=== PATIENT | female | born 1985 | race Caucasian/White ===

== ENCOUNTER 2016-05-01 09:08 | Day surgery (SDC) | payer MEDICAID ==
[2016-04-25 10:47] LABS: HEMATOCRIT 38.6 % (36.0-47.0); HEMOGLOBIN 12.8 g/dL (12.0-15.5); HGB HCT DIFFERENCE -0.2; MEAN CORPUSCULAR HEMOGLOBIN 26.6 pg (27.0-33.4); MEAN CORPUSCULAR HGB CONC 33.1 g/dL (32.0-36.0); MEAN CORPUSCULAR VOLUME 80 fl (80-97); RED BLOOD COUNT 4.82 10^6/uL (3.72-5.28); RED CELL DISTRIBUTION WIDTH 14.4 % (11.5-14.0); WHITE BLOOD COUNT 10.9 10^3/uL (4.0-10.5)
[2016-04-25 11:07] LABS: APPEARANCE,URINE CLOUDY; BILIRUBIN,URINE NEGATIVE (NEGATIVE); GLUCOSE, URINE NEGATIVE (NEGATIVE); KETONES,URINE NEGATIVE (NEGATIVE); LEUKOCYTE ESTERASE,URINE LARGE (NEGATIVE); NITRITE,URINE NEGATIVE (NEGATIVE); PROTEIN,URINE 30 mg/dL (NEGATIVE); URINE SPECIFIC GRAVITY 1.029; UROBILINOGEN,URINE NEGATIVE mg/dL (<2.0)
[2016-04-25 11:17] LABS: ANION GAP 15 (5-19); BLOOD UREA NITROGEN 14 mg/dL (7-20); CALCIUM 9.4 mg/dL (8.4-10.2); CARBON DIOXIDE 23 mmol/L (22-30); CHLORIDE 103 mmol/L (98-107); CREATININE RESULT 0.62 mg/dL (0.52-1.25); GLUCOSE 95 mg/dL (75-110); POTASSIUM 4.5 mmol/L (3.6-5.0); SODIUM 140.9 mmol/L (137-145)
[~2016-05-01 09:08] MED LIST: LIDOCAINE 0.5% INJ-PF (5 MG/ML) 50 ML SDV SUBCUT PRN; RINGERS SOLUTION,LACTATED 1,000 ML IV PRN; VANCOMYCIN HCL 1,000 MG in DEXTROSE 5%-WATER 250 ML IV PRN
[2016-05-01] MEDS ORDERED: DEXAMETHASONE SOD PHOSPHATE INJ 4 MG/1 ML VIAL ONE (11:01)
[2016-05-01] MEDS ORDERED: ONDANSETRON HCL INJ/PF 4 MG/2 ML SDV ONE (11:01)
[2016-05-01] MEDS ORDERED: SUCCINYLCHOLINE CHLORIDE INJ 200 MG/10 ML VIAL ONE (11:01)
[2016-05-01] MEDS ORDERED: HYDROMORPHONE HCL INJ/PF 2 MG/ML AMPULE ONE ×2 (11:20→11:22)
[2016-05-01] MEDS ORDERED: MIDAZOLAM 2 MG/2 ML INJ ONE (11:20)
[2016-05-01] MEDS ORDERED: FENTANYL CITRATE INJ/PF 250 MCG/5 ML AMPULE ONE (11:20)
[2016-05-01] MEDS ORDERED: PROPOFOL INJ 200 MG/20 ML VIAL IV ONE (11:21)
[2016-05-01] MEDS ORDERED: ACETAMINOPHEN 100 ML IV ONE (11:23)
[2016-05-01] MEDS ORDERED: BUPIVACAINE HCL 0.5 % INJ/PF 30 ML SDV ONE (11:26)
[2016-05-01] MEDS ORDERED: BUPIVACAINE HCL 0.5%-EPI 1:200000 INJ/PF 30 ML VIAL ONE (11:26)
[2016-05-01] MEDS ORDERED: PROMETHAZINE HCL INJ 25 MG/1 ML VIAL IV PRN ×2 (12:04)
[2016-05-01] MEDS ORDERED: FENTANYL CITRATE INJ/PF 100 MCG/2 ML AMPUL IV PRN ×3 (12:04)
[2016-05-01] MEDS ORDERED: DIPHENHYDRAMINE HCL 50 MG/ML VIAL IV PRN (12:04)
[2016-05-01] MEDS ORDERED: MEPERIDINE HCL/PF INJ 25 MG/1 ML DISP.SYRIN IV PRN (12:04)
[2016-05-01] MEDS ORDERED: DEXMEDETOMIDINE INJ 80 MCG/20 ML VIAL IV ONE (13:42)
[2016-05-01] MEDS: HYDROMORPHONE HCL INJ/PF 2 MG/ML AMPULE ONE ×8 (14:10→15:30)
--- NOTE | 2016-05-01 14:20 | Operative Report ---
Operative Report DATE OF SURGERY: 05/01/16 PREOPERATIVE DIAGNOSIS: Recurrent left patellar dislocation with osteochondral fragment. POSTOPERATIVE DIAGNOSIS: Same OPERATION: Left knee arthroscopy with medial patellofemoral ligament reconstruction utilizing gracilis allograft SURGEON: SALLY STRATTON ANESTHESIA: GA TISSUE REMOVED OR ALTERED: None COMPLICATIONS: None ESTIMATED BLOOD LOSS: 30 mL PROCEDURE: Patient was brought to the operating room and successfully induced and intubated in a the supine position. Once the endotracheal tube was secured the right lower extremity thigh tourniquet was applied and the left lower extremity was prepped and draped in a normal surgical fashion. Timeout was done identifying the left knee has a correct site. The extremity was held elevated for a couple minutes and then tourniquet was inflated at 300 mmHg 0.5% of Marcaine was injected into the anticipated portal sites. 11 blade was used to establish the anterolateral portal. Scope was introduced and the capsule was distended with sterile saline solution. Under direct visualization the anteromedial portal sites was established first by applying a spinal needle and then established with the 11 blade. Probe was introduced and a diagnostic scope was done. I noted the small osteochondral fragment on the inferior aspect of the patella which I was able to use a tissue grasper to remove. I estimated the size of the osteochondral fragment to be about 1 x 1 cm in size. Remaining patella was intact with some grade 2 and 3 changes of the inferior pole of the patella.. The lateral femoral condyle was intact but had some degenerative changes at the ridge laterally where her recurrent dislocations occurred. Trochlea medial, lateral compartments were all pristine with no meniscal tear or cartilage wear. Anterior cruciate ligament and PCL were intact. At this point I proceeded to remove the fluid from the knee and removed the drapes and proceeded with the medial patellofemoral ligament reconstruction portion of the case. 15 blade was used to do a larger incision just on the medial aspect of the patella. Dissection was taken down to the retinaculum. Bovie was used for hemostasis. 15 blade and Bovie was used to expose the medial border of the patella and make sure that we're superior enough as well. I noted the proximal stitches from her medial reefing. This was removed. At this point I used the 2 guide pins and placed him in the superior two thirds of the patella. C-arm was used to take AP and lateral fluoroscopy to confirm placement. Once I was satisfied with the location I then proceeded to use a 4.5 mm reamer and drilled about 25-30 mm in depth. At this point the gracilis was prepared in the back table and uses a to a FiberWire to do a whipstitch on both ends. Tendon length measured about 220 mm in length total. Once the 2 ends were sutured I fed while he has through the measuring device and make sure that it passed through a 4.5 mm tunnel which it did. At this point I fed while he has and secured it with one a swivel locks and secured it in the most proximal drill hole. I was able to screw the swivel lock into successfully without difficulty. I pulled on it showing good fixation on the patella. I repeated this procedure with the other limb and secured in the patella as mentioned above. I pulled on both limbs and showed no fixation failure and good fixation and tension. At this point then I did a 2 inch incision on the medial aspect of the knee just adjacent to the medial femoral condyle. This was dissected down with Bovie and Metzenbaum scissors until exposing the medial femoral condyle and medial epicondyle. Was able to pin the position of the MPFL and take C-arm pictures to confirm location. Once I was satisfied with the location of then proceeded to use a 7 mm reamer. Sure was passed 30 mm in length. I fed the gracilis looped portion subcutaneously and expose it through the medial incision. This was fed through the Gerson needle and was passed in the lateral aspect of thigh was pulled and secured into the drilled tunnel. I kept the knee in a triangle and bent about 30 or 40 to make sure there was appropriate tension. Once I was happy then I placement nitinol wire and secured the graft into the tunnel with a 7 x 23 bio composite interference screw. Make sure was sunk and holding the graft. Then I pulled the FiberWire on the lateral aspect of the thigh successfully. At this point irrigation was used to clean the extremity and proceeded to close the wound. I reapproximated the vastus medialis onto the medial aspect of the patella and close my repair over the gracilis graft. I used a #1 Vicryl. I then proceeded to close the subcutaneous tissue with 0 Vicryl and 2-0 Vicryl. I sutured the skin with 3-0 nylon. The 2 portal sites were closed with 3-0 nylon. At this point Xeroform 4 x 4 dressing was applied after Quarter percent Marcaine was injected.. I will overwrapped and covered the extremity with 4 x 4 dressing and AVD pad and Sof-Rol. Final layer was Adair bandage. At this point the drapes were removed and the knee immobilizer was applied. Of note the tourniquet was let down after 60 minutes due to it being a venous tourniquet. Once the patient was extubated she was transferred to the stretcher and sent to PACU in stable condition.
--- NOTE | 2016-05-01 14:20 | PDOC DISCHARGE SUMMARY ---
Discharge Summary (SDC) - Discharge Final Diagnosis: Recurrent left patellar dislocation Date of Surgery: 05/01/16 Condition: Good Treatment or Instructions: Patient instructed to follow up in 10-14 days. Patient instructed to keep dressing dry clean and intact for 4 days and then allowed to remove. At that point patient can shower and apply Band-Aids as needed. Patient can weight-bear as tolerated with knee immobilizer on Crutches for support and ambulation. Patient instructed to call the office if patient develops fevers chills redness and drainage from the surgical sites. Prescriptions: Hydrocodone/Acetaminophen [[place] 5-325 Tablet] 1 - 2 each PO Q4HP PRN #60 tablet PRN Reason: Referrals: KODAK HILARIO PA-C [Primary Care Provider] - Discharge Diet: As Tolerated Respiratory Treatments at Home: Deep Breathing/Coughing Discharge Activity: No Driving - While on narcotics, Keep Legs Elevated, No Lifting/Push/Pulling Adaptive Devices on Discharge: Axillary Crutches Report the Following to Your Physician Immediately: Shortness of Breath, Nausea , Vomiting, Increase in Pain, Fever over 101 Degrees, Unusual Bleeding, Redness , Swelling, Warmth, Drainage-Yellow, Drainage-Green, Drainage-Foul Smelling
[2016-05-01] MEDS ORDERED: HYDROCODONE/ACETAMINOPHEN 5-325 MG TABLET PO PRN (14:24)
[2016-05-01] MEDS ORDERED: KETOROLAC TROMETHAMINE INJ/PF 30 MG/1 ML SDV ONE (14:26)
[2016-05-01] MEDS ORDERED: HYDROMORPHONE HCL INJ/PF 2 MG/ML AMPULE IV PRN (15:16)
[2016-05-01] MEDS ORDERED: PROMETHAZINE HCL INJ 25 MG/1 ML VIAL ONE (16:10)
[2016-05-01 18:03] VITALS: BP 128/75
== END 2016-05-01 17:50 | disposition home or self-care (01) ==
LOC: OROUT 09:08
PROVIDERS: ATTEND Orthopaedic Surgery
PROC: 0MU Bursae and Ligaments, Supplement (ICD-10-PCS; 2016-05-01)
PROC: 0SCD4ZZ Extirpation of Matter from Left Knee Joint, Percutaneous Endoscopic Approach (ICD-10-PCS; principal; 2016-05-01 11:15)
DX: M22.02 Recurrent dislocation of patella, left knee (principal); S82.015A Nondisplaced osteochondral fracture of left patella, initial encounter for closed fracture; X58.XXXA Exposure to other specified factors, initial encounter; M17.12 Unilateral primary osteoarthritis, left knee; M25.362 Other instability, left knee; J45.909 Unspecified asthma, uncomplicated; Z79.51 Long term (current) use of inhaled steroids
CPT/HCPCS: 27420; G0289; 01400; 36415; 80048; 81001; 81025; 85027; J0131; J0330; J1100; J1170; J1885; J2250; J2405; J2550; J2704; J3010; J3370; J3490; J7060; L1830

== ENCOUNTER 2016-06-13 21:04 | Emergency (ER) | payer MEDICAID ==
[2016-06-13 21:22] VITALS: BP 174/99
[2016-06-13] MEDS ORDERED: HYDROCODONE/ACETAMINOPHEN 5-325 MG TABLET PO ONE (21:54)
--- NOTE | 2016-06-13 21:56 | ER Document Report ---
ED Medical Screen (RME) - General Stated Complaint: LEFT KNEE POST OP PROBLEM Mode of Arrival: Wheelchair Information source: Patient Notes: Patient reports having tendon replacement involving her left knee 6 weeks ago. Patient saw surgeon 2 days ago was told that a screw is coming out of the surgical site. Patient states that she felt the screw completely come out and feels like her knee cap dislocated. Dr Jerome performed the surgery I have greeted and performed a rapid initial assessment of this patient. A comprehensive ED assessment and evaluation of the patient, analysis of test results and completion of the medical decision making process will be conducted by additional ED providers. TRAVEL OUTSIDE OF THE [place] IN LAST 30 DAYS: No - Related Data Allergies/Adverse Reactions: aspirin [Aspirin] Allergy (Severe, Verified 06/13/16 21:53) CHEST TIGHTNESS,SOB oxycodone [Oxycodone] Allergy (Severe, Verified 06/13/16 21:53) CHEST TIGHTNESS, THROAT SWELLING amoxicillin [Amoxicillin] Allergy (Verified 06/13/16 21:53) Generalized rash oxycodone HCl [From Percocet] Allergy (Verified 06/13/16 21:53) Penicillins Allergy (Verified 06/13/16 21:53) Anaphylaxis amoxicillin trihydrate [From Augmentin] Adverse Reaction (Verified 06/13/16 21: 53) Fever Potassium Clavulanate * [From Augmentin] Adverse Reaction (Verified 06/13/16 21: 53) Fever Past Medical History - Past Medical History Cardiac Medical History: Denies: Hx Coronary Artery Disease, Hx Heart Attack, Hx Hypertension, Hx Pulmonary Embolism, Hx Heart Murmur Pulmonary Medical History: Reports: Hx Asthma, Hx Bronchitis, Hx Pneumonia - x3 Denies: Hx COPD, Hx Sleep Apnea, Hx Tuberculosis Neurological Medical History: Reports: Hx Seizures - A CHILD. Denies: Hx Cerebrovascular Accident Endocrine Medical History: Denies: Hx Hyperthyroidism, Hx Hypothyroidism Renal/ Medical History: Reports: Hx Kidney Stones - HX OF, Hx Ovarian Cysts. Denies: Hx Pelvic Inflammatory Disease Malignancy Medical History: Denies: Hx Breast Cancer, Hx Cervical Cancer, Hx Ovarian Cancer GI Medical History: Reports: Hx Gastroesophageal Reflux Disease, Hx Ulcer - AGE 17. Denies: Hx Hiatal Hernia Musculoskeltal Medical History: Reports Hx Arthritis, Denies Hx Fibromyalgia Psychiatric Medical History: Denies: Hx Bipolar Disorder, Hx Depression, Hx Post Traumatic Stress Disorder , Hx Schizophrenia Traumatic Medical History: Denies: Hx Fractures Infectious Medical History: Denies: Hx HIV Past Surgical History: Reports: Hx Orthopedic Surgery - left knee x2 - Immunizations Immunizations up to date: Yes Hx Diphtheria, Pertussis, Tetanus Vaccination: Yes Physical Exam - Vital signs Vitals: Temp Pulse Resp BP Pulse Ox 97.9 F 123 H 22 H 174/99 H 95 06/13/16 21:21 06/13/16 21:21 06/13/16 21:21 06/13/16 21:21 06/13/16 21:21 - Extremities General lower extremity: Tender - left knee Course - Vital Signs Vital signs: Temp Pulse Resp BP Pulse Ox 97.9 F 123 H 22 H 174/99 H 95 06/13/16 21:21 06/13/16 21:21 06/13/16 21:21 06/13/16 21:21 06/13/16 21:21
[2016-06-14] MEDS ORDERED: HYDROCODONE/ACETAMINOPHEN 5-325 MG 6 TAB/DSPK PO PRN (00:23)
--- NOTE | 2016-06-14 00:25 | ER Document Report ---
ED General - General Chief Complaint: Knee Pain Stated Complaint: LEFT KNEE POST OP PROBLEM Mode of Arrival: Wheelchair Notes: Patient is a 30-year-old female who presents with complaints of a sensation that her left kneecap dislocate again. She had surgery for this at the beginning of May. She saw Dr. Jerome a few days ago and was told that her screw appears be loosening. She was told by him that if he she had a sudden dislocation of the patella or increased pain that he could mean that the screws loosened to go to the ER. She had that today and therefore came to the ER. She denies any other injuries. She denies any recent fevers or infections. She says that her patella did dislocate but then went right back to place. TRAVEL OUTSIDE OF THE [place] IN LAST 30 DAYS: No - Related Data Allergies/Adverse Reactions: aspirin [Aspirin] Allergy (Severe, Verified 06/13/16 21:53) CHEST TIGHTNESS,SOB oxycodone [Oxycodone] Allergy (Severe, Verified 06/13/16 21:53) CHEST TIGHTNESS, THROAT SWELLING amoxicillin [Amoxicillin] Allergy (Verified 06/13/16 21:53) Generalized rash oxycodone HCl [From Percocet] Allergy (Verified 06/13/16 21:53) Penicillins Allergy (Verified 06/13/16 21:53) Anaphylaxis amoxicillin trihydrate [From Augmentin] Adverse Reaction (Verified 06/13/16 21: 53) Fever Potassium Clavulanate * [From Augmentin] Adverse Reaction (Verified 06/13/16 21: 53) Fever Past Medical History - General Information source: Patient - Social History Smoking Status: Unknown if Ever Smoked Frequency of alcohol use: None Drug Abuse: None Family History: Reviewed & Not Pertinent - Past Medical History Cardiac Medical History: Denies: Hx Coronary Artery Disease, Hx Heart Attack, Hx Hypertension, Hx Pulmonary Embolism, Hx Heart Murmur Pulmonary Medical History: Reports: Hx Asthma, Hx Bronchitis, Hx Pneumonia - x3 Denies: Hx COPD, Hx Sleep Apnea, Hx Tuberculosis Neurological Medical History: Reports: Hx Seizures - A CHILD. Denies: Hx Cerebrovascular Accident Endocrine Medical History: Denies: Hx Hyperthyroidism, Hx Hypothyroidism Renal/ Medical History: Reports: Hx Kidney Stones - HX OF, Hx Ovarian Cysts. Denies: Hx Peritoneal Dialysis, Hx Pelvic Inflammatory Disease Malignancy Medical History: Denies: Hx Breast Cancer, Hx Cervical Cancer, Hx Ovarian Cancer GI Medical History: Reports: Hx Gastroesophageal Reflux Disease, Hx Ulcer - AGE 17. Denies: Hx Hiatal Hernia Musculoskeltal Medical History: Reports Hx Arthritis, Denies Hx Fibromyalgia Psychiatric Medical History: Denies: Hx Bipolar Disorder, Hx Depression, Hx Post Traumatic Stress Disorder , Hx Schizophrenia Traumatic Medical History: Denies: Hx Fractures Infectious Medical History: Denies: Hx HIV Past Surgical History: Reports: Hx Orthopedic Surgery - left knee x2 - Immunizations Immunizations up to date: Yes Hx Diphtheria, Pertussis, Tetanus Vaccination: Yes Review of Systems - Review of Systems Notes: My Normal Review Basic REVIEW OF SYSTEMS: CONSTITUTIONAL : Denies fever, chills, or sweats. Denies recent illness. MUSCULOSKELETAL: Left knee pain SKIN: Denies rash or skin lesions. NEUROLOGICAL: Denies sensory or motor loss. ALL OTHER SYSTEMS REVIEWED AND NEGATIVE. Physical Exam - Vital signs Vitals: Temp Pulse Resp BP Pulse Ox 97.9 F 123 H 22 H 174/99 H 95 06/13/16 21:21 06/13/16 21:21 06/13/16 21:21 06/13/16 21:21 06/13/16 21:21 - Notes Notes: General Appearance: Well nourished, alert, cooperative, no acute distress, moderate obvious discomfort. Vitals: reviewed, See vital signs table. Extremities: strength 5/5 in all extremities, good pulses in all extremities, tenderness with any palpation of the patella., no edema. Skin: warm, dry, appropriate color, no rash Neuro: speech clear, oriented x 3, normal affect, responds appropriately to questions. Course - Vital Signs Vital signs: Temp Pulse Resp BP Pulse Ox 97.9 F 123 H 22 H 174/99 H 95 06/13/16 21:21 06/13/16 21:21 06/13/16 21:21 06/13/16 21:21 06/13/16 21:21 - Transfer of Care Notes: 06/14/16 06:07 I did call and speak with Dr. Jay, orthopedist, for Dr. Queenie Jensen. At this time he agrees with plan to place patient in the immobilizer and have her call the office on Thursday for a close follow-up appointment. I will give her pain medication. Patient is agreeable to plan will be discharged home. Dictation of this chart was performed using voice recognition software; therefore, there may be some unintended grammatical errors. Discharge - Discharge Clinical Impression: Post-operative pain Left knee pain Qualifiers: Chronicity: acute Qualified Code(s): M25.562 - Pain in left knee Condition: Good Disposition: HOME, SELF-CARE Instructions: Oral Narcotic Medication ([facility]) Additional Instructions: Please follow up closely with Dr. Jerome. Please call his office Thursday morning for a close follow-up appointment this week. Please wear the knee immobilizer. Prescriptions: Hydrocodone/Acetaminophen [[place] 5-325 mg Tablet] 1 tab PO Q4 PRN #16 tablet PRN Reason: For Breakthrough Pain Forms: Return to Work Referrals: KODAK HILARIO PA-C [Primary Care Provider] - Follow up as needed
== END 2016-06-14 00:43 | disposition home or self-care (01) ==
LOC: ER 21:04
DX: G89.18 Other acute postprocedural pain (principal); M25.562 Pain in left knee
CPT/HCPCS: 99283; 73562; L1830

== ENCOUNTER 2016-06-27 14:03 | Day surgery (SDC) | payer MEDICAID ==
[2016-06-23 12:04] LABS: HEMATOCRIT 37.8 % (36.0-47.0); HEMOGLOBIN 12.3 g/dL (12.0-15.5); HGB HCT DIFFERENCE -0.9; MEAN CORPUSCULAR HEMOGLOBIN 26.3 pg (27.0-33.4); MEAN CORPUSCULAR HGB CONC 32.7 g/dL (32.0-36.0); MEAN CORPUSCULAR VOLUME 81 fl (80-97); RED BLOOD COUNT 4.69 10^6/uL (3.72-5.28); RED CELL DISTRIBUTION WIDTH 14.7 % (11.5-14.0); WHITE BLOOD COUNT 9.3 10^3/uL (4.0-10.5)
[~2016-06-27 14:03] MED LIST changes: +BUPIVACAINE HCL 0.5 % INJ/PF 30 ML SDV ONE; +EPINEPHRINE INJ/PF 1 MG/1 ML AMPULE ONE; +GLYCOPYRROLATE INJ 0.4 MG/2 ML VIAL ONE; +LACTATED RINGERS 1000 ML IV PRN; +LIDOCAINE 2% INJ-PF (20 MG/ML) 10 ML AMPUL ONE; +METOCLOPRAMIDE HCL INJ/PF 10 MG/2 ML SDV ONE; +NEOSTIGMINE METHYLSULFATE 10 MG/10 ML VIAL ONE; +ONDANSETRON HCL INJ/PF 4 MG/2 ML SDV ONE; -RINGERS SOLUTION,LACTATED 1,000 ML IV PRN; +ROCURONIUM BROMIDE INJ 50 MG/5 ML VIAL IV ONE; +SUCCINYLCHOLINE CHLORIDE INJ 200 MG/10 ML VIAL ONE
[2016-06-27] MEDS ORDERED: FENTANYL CITRATE INJ/PF 250 MCG/5 ML AMPULE ONE (14:29)
[2016-06-27] MEDS ORDERED: MIDAZOLAM 2 MG/2 ML INJ ONE (14:30)
[2016-06-27] MEDS ORDERED: ACETAMINOPHEN 100 ML IV ONE (14:30)
[2016-06-27] MEDS ORDERED: PROPOFOL INJ 200 MG/20 ML VIAL IV ONE (14:30)
[2016-06-27] MEDS ORDERED: MORPHINE SULFATE 10 MG/ML INJ ONE (14:31)
[2016-06-27] MEDS ORDERED: ALBUTEROL SULFATE 0.083% NEB 2.5 MG/3 ML AMPUL NEB ONE (14:35)
[2016-06-27 15:13] LABS: APPEARANCE,URINE CLOUDY; BILIRUBIN,URINE NEGATIVE (NEGATIVE); GLUCOSE, URINE NEGATIVE (NEGATIVE); KETONES,URINE NEGATIVE (NEGATIVE); LEUKOCYTE ESTERASE,URINE TRACE (NEGATIVE); NITRITE,URINE NEGATIVE (NEGATIVE); PROTEIN,URINE NEGATIVE (NEGATIVE); URINE SPECIFIC GRAVITY 1.027; UROBILINOGEN,URINE NEGATIVE mg/dL (<2.0)
[2016-06-27 15:25] LABS: ANION GAP 11 (5-19); BLOOD UREA NITROGEN 11 mg/dL (7-20); CALCIUM 10.2 mg/dL (8.4-10.2); CARBON DIOXIDE 25 mmol/L (22-30); CHLORIDE 106 mmol/L (98-107); CREATININE RESULT 0.52 mg/dL (0.52-1.25); GLUCOSE 90 mg/dL (75-110); POTASSIUM 3.8 mmol/L (3.6-5.0); SODIUM 142.4 mmol/L (137-145)
[2016-06-27] MEDS ORDERED: OXYCODONE-ACETAMINOPHEN 5-325 MG TABLET PO PRN ×2 (15:59)
[2016-06-27] MEDS ORDERED: MORPHINE SULFATE 10 MG/ML INJ IV PRN (15:59)
[2016-06-27] MEDS ORDERED: FENTANYL CITRATE INJ/PF 100 MCG/2 ML AMPUL IV PRN ×3 (15:59)
[2016-06-27] MEDS ORDERED: MEPERIDINE HCL/PF INJ 25 MG/1 ML DISP.SYRIN IV PRN (15:59)
[2016-06-27] MEDS ORDERED: PROMETHAZINE HCL INJ 25 MG/1 ML VIAL IV PRN ×2 (15:59)
[2016-06-27] MEDS ORDERED: DIPHENHYDRAMINE HCL 50 MG/ML VIAL IV PRN (15:59)
--- NOTE | 2016-06-27 17:04 | Operative Report ---
Operative Report DATE OF SURGERY: 06/27/16 PREOPERATIVE DIAGNOSIS: Failed left MPFL reconstruction POSTOPERATIVE DIAGNOSIS: Same OPERATION: Revision MPFL construction. Removal of deep implant SURGEON: SALLY STRATTON ANESTHESIA: GA TISSUE REMOVED OR ALTERED: No tissues removed but a 6 x 23 bio composite interference screw was removed COMPLICATIONS: None ESTIMATED BLOOD LOSS: 35 mL INTRAOPERATIVE FINDINGS: Bio tenodesis screw was loose and partially backed out from the medial femoral condyle PROCEDURE: After receiving 1 g of vancomycin in the preoperative holding area patient was brought to the operating where she was induced and intubated. Thigh tourniquet to the left lower extremity was applied and the left lower extremity was prepped and draped in a normal surgical fashion. Timeout was done identifying the left knee has a correct site. Initially the inflated tourniquet 300 mmHg and proceeded to do a incision right over the medial femoral condyle using the old incision and extending and both proximal and distal. We was used to do hemostasis but after 8 minutes patient developed a venous tourniquet and the tourniquet was deflated. Dissection was done skin knife and then Bovie for subcutaneous fat. Self-retaining retractors were applied and [employer]'s was used to expand the incision. I was able to find the fascial tissue over the medial femoral condyle exercises. I was able to dissect with Metzenbaum scissors and expose the old gracilis implant. Removing scar tissue was able then to expose the head of the bio composite tenodesis screw. I was able to use a screwdriver and backed it out. The looped tendon was then loaded with a FiberWire to shuttle through the tunnel one more time. I used a Gerson needle to go through the previously drilled hole and pierced the lateral thigh. I fed the FiberWire through the eyelet and pulled the FiberWire laterally. This secured the gracilis graft again back into the predrilled pulled on the medial femoral condyle. This time I used a 8 x 23 bio composite screw. The screw had good purchase. I did not ream prior to placing the screw. I made sure that it was sunk and then palpated and visualized it being in. I placed the knee in range of motion and the tendon was secure and there was no motion at the screw site. Once I was happy with the revision and resecuring of the graft I then proceeded to close with 0 Vicryl and 2-0 Vicryl and 3-0 nylon. Xeroform 4 x 4 dressing was applied and then overwrapped with Sof-Rol and Adair bandage. Drapes were removed patient was placed in a hinged knee brace locked at 0. Patient was then successfully extubated and sent to PACU in stable condition.
--- NOTE | 2016-06-27 17:09 | PDOC DISCHARGE SUMMARY ---
Discharge Summary (SDC) - Discharge Final Diagnosis: Status post revision of left knee MPFL reconstruction Date of Surgery: 06/27/16 Discharge Date: 06/27/16 Condition: Good Treatment or Instructions: Keep knee hinged brace on locked at 0. Weight-bear as tolerated with crutches. Ice and elevate when resting. Remove dressing and 4 days and then okay to shower. Discharge Diet: As Tolerated Respiratory Treatments at Home: Deep Breathing/Coughing Discharge Activity: No Driving, No Lifting/Push/Pulling, Walk Frequently Adaptive Devices on Discharge: Axillary Crutches Report the Following to Your Physician Immediately: Shortness of Breath, Vomiting, Fever over 101 Degrees, Unusual Bleeding, Redness, Warmth, Drainage- Yellow, Drainage-Green, Drainage-Foul Smelling
[2016-06-27] MEDS ORDERED: HYDROCODONE/ACETAMINOPHEN 5-325 MG TABLET ONE (17:46)
[2016-06-27 19:21] VITALS: BP 116/72
== END 2016-06-27 19:20 | disposition home or self-care (01) ==
LOC: OROUT 14:03
PROVIDERS: ATTEND Orthopaedic Surgery
PROC: 0SPD04Z Removal of Internal Fixation Device from Left Knee Joint, Open Approach (ICD-10-PCS; 2016-06-27)
PROC: 0MU Bursae and Ligaments, Supplement (ICD-10-PCS; principal; 2016-06-27 16:00)
DX: M25.562 Pain in left knee (principal); Z47.89 Encounter for other orthopedic aftercare; M19.90 Unspecified osteoarthritis, unspecified site; F17.210 Nicotine dependence, cigarettes, uncomplicated; Z88.0 Allergy status to penicillin; Z88.1 Allergy status to other antibiotic agents; Z88.5 Allergy status to narcotic agent; Z87.11 Personal history of peptic ulcer disease
CPT/HCPCS: 36415 ×2; 85027; 81025; 80048; 81001; 27428; 20680; C1713; J2250; J3490 ×3; J3010; J2765; J2270; J0330; J2405; J7060; J2704; J3370; J0131; 1400; J0171

== ENCOUNTER → 2016-08-11 | Outpatient (CLI) | payer MEDICAID | LOC: RAD 11:22 | PROVIDERS: ATTEND Physician Assistant | DX: M54.41 Lumbago with sciatica, right side (principal) | CPT/HCPCS: 72110 ==

== ENCOUNTER 2017-04-01 14:15 | Emergency (ER) | payer SELFPAY ==
[2017-04-01] MEDS ORDERED: DIPH/PERTUSS(ACELL)/TETANUS VAC/PF 0.5 ML SYR (>=10YO) IM ONE (16:00)
--- NOTE | 2017-04-01 16:28 | RADIOLOGY REPORT (SQ) ---
EXAM DESCRIPTION: FOREARM RIGHT COMPLETED DATE/TIME: 04/01/2017 4:18 pm REASON FOR STUDY: dog bite COMPARISON: None. NUMBER OF VIEWS: Two views. TECHNIQUE: Two radiographic images acquired of the right forearm, including elbow and wrist in at le ast one projection. LIMITATIONS: None. FINDINGS: MINERALIZATION: Normal. BONES: No acute fracture. No worrisome bone lesions. SOFT TISSUES: No obvious swelling or foreign body. OTHER: No other significant finding. IMPRESSION: NEGATIVE STUDY OF THE RIGHT FOREARM. NO RADIOGRAPHIC EVIDENCE OF ACUTE INJURY. TECHNICAL DOCUMENTATION: JOB ID: [id number] [employer]- All Rights Reserved
--- NOTE | 2017-04-01 16:28 | RADIOLOGY REPORT (SQ) ---
EXAM DESCRIPTION: WRIST RIGHT 3 VIEWS COMPLETED DATE/TIME: 04/01/2017 4:18 pm REASON FOR STUDY: dog bite COMPARISON: None. NUMBER OF VIEWS: Three views. TECHNIQUE: AP, lateral, and oblique radiographic images acquired of the right wrist. LIMITATIONS: None. FINDINGS: MINERALIZATION: Normal. BONES: No acute fracture or dislocation. No worrisome bone lesions. Normal alignment. SOFT TISSUES: No soft tissue swelling. No foreign body. OTHER: No other significant finding. IMPRESSION: NEGATIVE STUDY OF THE RIGHT WRIST. NO RADIOGRAPHIC EVIDENCE OF ACUTE INJURY. TECHNICAL DOCUMENTATION: JOB ID: [id number] [employer]- All Rights Reserved
--- NOTE | 2017-04-01 17:05 | ER Document Report ---
ED Animal Bite - General Chief Complaint: Dog Bite Stated Complaint: RIGHT HAND INJURY Time Seen by Provider: 04/01/17 15:58 Mode of Arrival: Ambulatory Information source: Patient Notes: Patient is a 31-year-old white female comes emergency room complaining of right forearm pain. Patient states that her to peds 1 pit bull and 1 Mosoth[place] Chua were in a locked down tight fight patient attempted to break them up as she did the pit bull backed off and the [place] latched onto her right forearm. Patient states that this was earlier today and they pain and discomfort is increasing. The bite only produced 1 little small puncture wound but patient is having coffee with extension of her fingers on the fifth and fourth digits. The patient denies any other injuries. TRAVEL OUTSIDE OF THE [place] IN LAST 30 DAYS: No - HPI Location of injury: RUE Severity of injury: Bitten Onset: This morning Where did incident occur: Home Quality of pain: Throbbing Pain Level: 3 Severity: Moderate Context of attack: "Provoked" attack, Animals fighting Summary of what happened: See above pit bull Mosotho Chua fighting were patient's pets. Pit bull backed off Mosotho Chua bit down no major puncture wounds or lacerations or abrasions as a contusion to the right forearm on the ulnar side. Type of animal: Dog Appearance of animal: Appeared well Breed and color: Pit bull and a Mosotho Chua Animal's immunizations: UTD Animal captured or known: Yes Animal control notified: Yes - Related Data Allergies/Adverse Reactions: amoxicillin [Amoxicillin] Allergy (Severe, Verified 04/01/17 14:18) Generalized rash aspirin [Aspirin] Allergy (Severe, Verified 04/01/17 14:18) CHEST TIGHTNESS,SOB oxycodone [Oxycodone] Allergy (Severe, Verified 04/01/17 14:18) CHEST TIGHTNESS, THROAT SWELLING oxycodone HCl [From Percocet] Allergy (Severe, Verified 04/01/17 14:18) itching Penicillins Allergy (Severe, Verified 04/01/17 14:18) Anaphylaxis amoxicillin trihydrate [From Augmentin] Adverse Reaction (Severe, Verified 04/01 14:18) Fever Potassium Clavulanate * [From Augmentin] Adverse Reaction (Severe, Verified 14:18) Fever Past Medical History - General Information source: Patient - Social History Smoking Status: Never Smoker Cigarette use (# per day): No Chew tobacco use (# tins/day): No Smoking Education Provided: No Frequency of alcohol use: None Drug Abuse: None Family History: Reviewed & Not Pertinent Patient has suicidal ideation: No Patient has homicidal ideation: No - Past Medical History Cardiac Medical History: Denies: Hx Coronary Artery Disease, Hx Heart Attack, Hx Hypertension, Hx Pulmonary Embolism, Hx Heart Murmur Pulmonary Medical History: Reports: Hx Asthma - inhaler/neb, Hx Bronchitis - hx of, Hx Pneumonia - hx of Denies: Hx COPD, Hx Sleep Apnea, Hx Tuberculosis Neurological Medical History: Reports: Hx Seizures - A CHILD. Denies: Hx Cerebrovascular Accident Endocrine Medical History: Denies: Hx Hyperthyroidism, Hx Hypothyroidism Renal/ Medical History: Reports: Hx Kidney Stones - HX OF, Hx Ovarian Cysts. Denies: Hx Peritoneal Dialysis, Hx Pelvic Inflammatory Disease Malignancy Medical History: Denies: Hx Breast Cancer, Hx Cervical Cancer, Hx Ovarian Cancer GI Medical History: Reports: Hx Gastroesophageal Reflux Disease, Hx Ulcer - AGE 17. Denies: Hx Hiatal Hernia Musculoskeltal Medical History: Reports Hx Arthritis - knees, Denies Hx Fibromyalgia Psychiatric Medical History: Denies: Hx Bipolar Disorder, Hx Depression, Hx Post Traumatic Stress Disorder , Hx Schizophrenia Traumatic Medical History: Denies: Hx Fractures Infectious Medical History: Denies: Hx HIV Past Surgical History: Reports: Hx Orthopedic Surgery - left knee x2 - Immunizations Immunizations up to date: Yes Hx Diphtheria, Pertussis, Tetanus Vaccination: Yes Review of Systems - Review of Systems Constitutional: No symptoms reported EENT: No symptoms reported Cardiovascular: No symptoms reported Respiratory: No symptoms reported Gastrointestinal: No symptoms reported Genitourinary: No symptoms reported Female Genitourinary: No symptoms reported Musculoskeletal: Muscle pain Skin: Other - Small puncture wound Hematologic/Lymphatic: No symptoms reported Neurological/Psychological: No symptoms reported -: Yes All other systems reviewed and negative Physical Exam - Vital signs Vitals: Temp Pulse Resp BP Pulse Ox 99.1 F 125 H 14 148/100 H 97 04/01/17 14:23 04/01/17 14:23 04/01/17 14:23 04/01/17 14:23 04/01/17 14:23 Interpretation: Hypertensive - General General appearance: Appears well, Other - Uncomfortable appearing - HEENT Head: Normocephalic Eyes: Normal Conjunctiva: Normal Cornea: Normal - Respiratory Respiratory status: No respiratory distress Chest status: Nontender Breath sounds: Normal. No: Decreased air movement, Nonproductive cough, Productive cough, Rales, Rhonchi, Stridor, Wheezing, Other Chest palpation: Normal - Cardiovascular Rhythm: Regular, Tachycardia - Extremities General upper extremity: Tender. No: Normal inspection, Nontender, Edema, Normal color, Normal ROM, Normal strength, Normal temperature, Other General lower extremity: Normal inspection, Normal ROM Forearm: Tender, Ecchymosis, Other - Further examination of the right forearm shows there is a 1 small puncture wound on the dorsal portion of the right forearm on the ulnar side. This is approximately distal shaft. Wrist: Tender, Limited ROM Hand: Tender, Other - Examination patient's right hand shows no swelling or bite hayes patient has good flexion of all fingers but is unable to extend the fourth and fifth digits. She has good cap refill in the nailbeds of all fingers and good ulnar radial pulses. Hip: Normal - Skin Skin Temperature: Warm Skin Moisture: Dry Skin Color: [place], Other - Examination patient's right forearm and proximal wrist shows there to be a small hematoma with ecchymosis at the distal portion of the ulna. Is approximately 6 cm x 3 cm. Very tender to touch there is one puncture que that is sitting just above that less than 3 mm in his diameter and no other abrasions or skin openings that I could find. Course - Vital Signs Vital signs: Temp Pulse Resp BP Pulse Ox 99.1 F 125 H 14 148/100 H 97 04/01/17 14:23 04/01/17 14:23 04/01/17 14:23 04/01/17 14:23 04/01/17 14:23 - Diagnostic Test Radiology reviewed: Reports reviewed - X-ray report of the arm and wrist show no acute findings. - Transfer of Care Notes: 04/01/17 17:13 Patient is allergic to penicillins. At this point will place her on clindamycin 300 4 times daily and Cipro 500 twice daily. Will have patient return to ER for any concerns or problems ice down to the local area slight amount of pain medications with the discomfort. We will put her in a splint and have her follow-up with her primary or return here if she has any concerns. Procedures - Immobilization Right Arm Time completed: 17:14 Pre-Proc Neuro Vasc Exam: Normal Immobilizer type: Cock-up Performed by: PCT Post-Proc Neuro Vasc Exam: Normal Discharge - Discharge Clinical Impression: Dog bite Qualifiers: Encounter type: initial encounter Qualified Code(s): W54.0XXA - Bitten by dog, initial encounter Condition: Good Disposition: HOME, SELF-CARE Instructions: Animal Bites ([facility]) Additional Instructions: Ongoing stop and pick up and delivery driver the antibiotics. Since you are allergic to the penicillins I am placing on clindamycin and Cipro. These are recommended by the CDC for dog bites. Ice to the area where the swelling is 3 times a day. Use the splint for the next 3-5 days for comfort. If after 3-5 days if you are still having discomfort and pain will need to follow-up with an orthopedist or your primary physician for referral. I will give you the name of the orthopedist combination saw operator today he may contact his office to see if he can accommodate you. As always if you have concerns or questions return to ER for a recheck. Prescriptions: Ciprofloxacin HCl [Cipro 500 mg Tablet] 500 mg PO BID #20 tablet Clindamycin HCl 300 mg PO QID #40 capsule Hydrocodone/Acetaminophen [[place] 7.5-325 mg Tablet] 1 tab PO Q6 PRN #15 tablet PRN Reason: Forms: Elevated Blood Pressure Referrals: KODAK HILARIO PA-C [Primary Care Provider] - Follow up as needed SALLY PALOMARES MD [ACTIVE STAFF] - Follow up as needed
[2017-04-01] MEDS ORDERED: HYDROCODONE/ACETAMINOPHEN 5-325 MG TABLET PO ONE (17:26)
[2017-04-01 17:46] VITALS: BP 135/85
== END 2017-04-01 17:46 | disposition home or self-care (01) ==
LOC: ER 14:15
DX: S50.11XA Contusion of right forearm, initial encounter (principal); S60.211A Contusion of right wrist, initial encounter; W54.0XXA Bitten by dog, initial encounter
CPT/HCPCS: 99283; 90471; 73090; 73110; 90715; L3908

== ENCOUNTER 2018-03-21 12:09 | Emergency (ER) | payer SELFPAY ==
[2018-03-21] MEDS ORDERED: KETOROLAC TROMETHAMINE 60 MG/2 ML SDV IM ONE (13:04)
--- NOTE | 2018-03-21 13:09 | ER Document Report ---
HPI - HPI Time Seen by Provider: 03/21/18 12:57 Pain Level: 5 Notes: Patient is a 32-year-old female with a history of chronic recurrent shoulder pain who presents to the ED complaining of shoulder pain over the last week. Patient states that she has been working on her house and doing a lot of construction type work which may exacerbate her right shoulder pain. Patient states that the pain does not radiate. She has pain with range of motion. Denies any drug abuse. No other concerns or complaints at this time. She has not been seen by specialist for this issue. Pt did take motrin and norco with minimal improvement. Denies any headache, fever, head injury, neck pain, URI, sore throat, chest pain, palpitations, syncope, cough, shortness of breath, wheeze, dyspnea, abdominal pain, nausea/vomiting/diarrhea, urinary retention, dysuria, hematuria, numbness/tingling, muscle paralysis, or rash. - ROS Systems Reviewed and Negative: Yes All other systems reviewed and negative - REPRODUCTIVE Reproductive: DENIES: : Past Medical History - Social History Smoking Status: Unknown if Ever Smoked Family History: Reviewed & Not Pertinent - Past Medical History Cardiac Medical History: Denies: Hx Coronary Artery Disease, Hx Heart Attack, Hx Hypertension, Hx Pulmonary Embolism, Hx Heart Murmur Pulmonary Medical History: Reports: Hx Asthma - inhaler/neb, Hx Bronchitis - hx of, Hx Pneumonia - hx of Denies: Hx COPD, Hx Sleep Apnea, Hx Tuberculosis Neurological Medical History: Reports: Hx Seizures - A CHILD. Denies: Hx Cerebrovascular Accident Endocrine Medical History: Denies: Hx Hyperthyroidism, Hx Hypothyroidism Renal/ Medical History: Reports: Hx Kidney Stones - HX OF, Hx Ovarian Cysts. Denies: Hx Peritoneal Dialysis, Hx Pelvic Inflammatory Disease Malignancy Medical History: Denies: Hx Breast Cancer, Hx Cervical Cancer, Hx Ovarian Cancer GI Medical History: Reports: Hx Gastroesophageal Reflux Disease, Hx Ulcer - AGE 17. Denies: Hx Hiatal Hernia Musculoskeletal Medical History: Reports Hx Arthritis - knees, Denies Hx Fibromyalgia Psychiatric Medical History: Denies: Hx Bipolar Disorder, Hx Depression, Hx Post Traumatic Stress Disorder , Hx Schizophrenia Traumatic Medical History: Denies: Hx Fractures Infectious Medical History: Denies: Hx HIV Past Surgical History: Reports: Hx Orthopedic Surgery - left knee x2 - Immunizations Immunizations up to date: Yes Hx Diphtheria, Pertussis, Tetanus Vaccination: Yes Vertical Provider Document - CONSTITUTIONAL Agree With Documented VS: Yes Notes: PHYSICAL EXAMINATION: GENERAL: Well-appearing, well-nourished and in no acute distress. NECK: Normal range of motion, supple without lymphadenopathy. Non-tender. Spurling negative. No rigidity/meningismus. LUNGS: Breath sounds clear to auscultation bilaterally and equal. No wheezes rales or rhonchi. HEART: Regular rate and rhythm without murmurs, rubs, gallops. Musculoskeletal: Rt shoulder: FROM to passive. LROM to active due to pain. Strength 4+/5 due to pain. + mild impingement test. Neg speed test. No crepitus. No erythema or warmth. No deformity or ecchymosis. RC intact 4+/5 strength primarily to empty can testing. Extremities: No cyanosis, clubbing, or edema b/l. Peripheral pulses 2+. Capillary refill less than 3 seconds. NEUROLOGICAL: Normal speech, normal gait. Normal sensory, motor exams PSYCH: Normal mood, normal affect. SKIN: Warm, Dry, normal turgor, no rashes or lesions noted. - INFECTION CONTROL TRAVEL OUTSIDE OF THE [place] IN LAST 30 DAYS: No Course - Re-evaluation Re-evalutation: 03/21/18 13:07 Patient is an afebrile, well-hydrated, 32-year-old female who presents to the ED with Rt shoulder pain which I suspect to be inflammatory. Vitals are acceptable without any significant tachycardia, tachypnea, or hypoxia. PE is otherwise unremarkable for any neurovascular compromise, obvious tendon/ ligament rupture, obvious fracture/dislocation, septic joint. Sling provided today along with toradol. Patient is nontoxic-appearing. Stretches/Exercises reviewed. No other labs or imaging warranted at this time based on H&P. Conservative measures otherwise for symptoms. Recheck with your PCM in 3-5 days. Schedule consult orthopedics. Return to the ED with any worsening/ concerning symptoms otherwise as reviewed in discharge. Patient is in agreement. - Vital Signs Vital signs: Temp Pulse Resp BP Pulse Ox 98.7 F 101 H 17 140/85 H 99 03/21/18 12:21 18 12:21 03/21/18 12:21 03/21/18 12:21 03/21/18 12:21 Discharge - Discharge Clinical Impression: Right shoulder pain Qualifiers: Chronicity: acute Qualified Code(s): M25.511 - Pain in right shoulder Condition: Stable Disposition: HOME, SELF-CARE Instructions: Exercise Program for the Shoulder ([facility]) Additional Instructions: Rest, Ice, Compression, Elevation Use sling as directed Tylenol/ibuprofen as needed Light stretches daily Strength exercises as able Moist heat and massage may help F/u with your PCP in 3-5 days for a recheck Schedule consult with orthopedics for further evaluation and management Return to the ED with any worsening symptoms and/or development of fever, headache, chest pain, palpitations, syncope, shortness of breath, trouble breathing, abdominal pain, n/v/d, muscle weakness/paralysis, numbness/tingling, swelling, redness, or other worsening symptoms that are concerning to you. Forms: Elevated Blood Pressure Referrals: KODAK HILARIO PA-C [Primary Care Provider] - Follow up as needed [facility] [Provider Group] - Follow up as needed
[2018-03-21 14:36] VITALS: BP 136/88
== END 2018-03-21 14:42 | disposition home or self-care (01) ==
LOC: ER 12:09
DX: M25.511 Pain in right shoulder (principal); Z87.442 Personal history of urinary calculi
CPT/HCPCS: 99283; 96372; J1885

== ENCOUNTER 2019-01-01 07:37 | Emergency (ER) | payer MEDICAID ==
[2019-01-01] MEDS ORDERED: IPRATROPIUM/ALBUTEROL 0.5-2.5 MG/3 ML AMPUL NEB ONE (09:21)
--- NOTE | 2019-01-01 09:24 | ER Document Report ---
ED Medical Screen (RME) - General Chief Complaint: Shortness Of Breath Stated Complaint: TROUBLE BREATHING Time Seen by Provider: 01/01/19 09:16 Primary Care Provider: KODAK HILARIO PA-C [Primary Care Provider] - Follow up as needed Notes: Patient is a 33-year-old female with a history of asthma who presents to the emergency department with a chief complaint of shortness of breath. Patient states she developed shortness of breath yesterday afternoon around 2 PM. Patient states she was at work when she was surrounded by fumes which seemed to make the shortness of breath worse. Patient reports she has attempted to use her albuterol inhaler but this only helps briefly. Patient denies fever. Patient reports she does smoke 5 cigarettes/day. Patient states last night she did develop a green productive cough. Patient reports that her biggest complaint is that she cannot take a full deep breath and feels short of breath with talking. TRAVEL OUTSIDE OF THE [place] IN LAST 30 DAYS: No - Related Data Allergies/Adverse Reactions: amoxicillin [Amoxicillin] Allergy (Severe, Verified 01/01/19 07:38) Generalized rash aspirin [Aspirin] Allergy (Severe, Verified 01/01/19 07:38) CHEST TIGHTNESS,SOB oxycodone [Oxycodone] Allergy (Severe, Verified 01/01/19 07:38) CHEST TIGHTNESS, THROAT SWELLING oxycodone HCl [From Percocet] Allergy (Severe, Verified 01/01/19 07:38) itching Penicillins Allergy (Severe, Verified 01/01/19 07:38) Anaphylaxis amoxicillin trihydrate [From Augmentin] Adverse Reaction (Severe, Verified 01/01/19 07:38) Fever Potassium Clavulanate * [From Augmentin] Adverse Reaction (Severe, Verified 01/01/19 07:38) Fever Past Medical History - Past Medical History Cardiac Medical History: Denies: Hx Coronary Artery Disease, Hx Heart Attack, Hx Hypertension, Hx Pulmonary Embolism, Hx Heart Murmur Pulmonary Medical History: Reports: Hx Asthma - inhaler/neb, Hx Bronchitis - hx of, Hx Pneumonia - hx of Denies: Hx COPD, Hx Sleep Apnea, Hx Tuberculosis Neurological Medical History: Reports: Hx Seizures - A CHILD. Denies: Hx Cerebrovascular Accident Endocrine Medical History: Denies: Hx Hyperthyroidism, Hx Hypothyroidism Renal/ Medical History: Reports: Hx Kidney Stones - HX OF, Hx Ovarian Cysts. Denies: Hx Peritoneal Dialysis, Hx Pelvic Inflammatory Disease Malignancy Medical History: Denies: Hx Breast Cancer, Hx Cervical Cancer, Hx Ovarian Cancer GI Medical History: Reports: Hx Gastroesophageal Reflux Disease, Hx Ulcer - AGE 17. Denies: Hx Hiatal Hernia Musculoskeltal Medical History: Reports Hx Arthritis - knees, Denies Hx Fibromyalgia Psychiatric Medical History: Denies: Hx Bipolar Disorder, Hx Depression, Hx Post Traumatic Stress Disorder, Hx Schizophrenia Traumatic Medical History: Denies: Hx Fractures Infectious Medical History: Denies: Hx HIV Past Surgical History: Reports: Hx Section - x2, Hx Cholecystectomy, Hx Orthopedic Surgery - left knee x2 - Immunizations Immunizations up to date: Yes Hx Diphtheria, Pertussis, Tetanus Vaccination: Yes Physical Exam - Vital signs Vitals: Temp Pulse Resp BP Pulse Ox 98.1 F 107 H 17 140/80 H 97 01/01/19 07:42 01/01/19 07:42 01/01/19 07:42 01/01/19 07:42 01/01/19 07:42 - Respiratory Breath sounds: Wheezing - Inspiratory and expiratory wheeze noted in the right upper and lower lobe. Patient does have a dry intermittent cough during evaluation. Course - Re-evaluation Re-evalutation: 01/01/19 09:23 Patient slightly tachycardic with a heart rate of 107. Patient's oxygen level is 97% on room air. We will start with a breathing treatment and reevaluate. I have greeted and performed a rapid initial assessment of this patient. A comprehensive ED assessment and evaluation of the patient, analysis of test results and completion of the medical decision making process will be conducted by additional ED providers. - Vital Signs Vital signs: Temp Pulse Resp BP Pulse Ox 98.1 F 107 H 17 140/80 H 97 01/01/19 07:42 01/01/19 07:42 01/01/19 07:42 01/01/19 07:42 01/01/19 07:42 Doctor's Discharge - Discharge Referrals: KODAK HILARIO PA-C [Primary Care Provider] - Follow up as needed
[2019-01-01] MEDS ORDERED: PREDNISONE 20 MG TABLET PO ONE (10:21)
--- NOTE | 2019-01-01 10:28 | ER Document Report ---
ED Respiratory Problem - General Chief Complaint: Shortness Of Breath Stated Complaint: TROUBLE BREATHING Time Seen by Provider: 01/01/19 09:16 Primary Care Provider: KODAK HILARIO PA-C [Primary Care Provider] - Follow up as needed Information source: Patient Notes: HPI: 33-year-old female who presents today with the onset yesterday of some runny nose, congestion, and coughing. She denies any fevers or vomiting. She denies to me any chest pain to the anterior posterior aspect of the ribs or chest. Patient states she believes some fumes yesterday exacerbated the cough. She does have an albuterol inhaler at home and does have a primary care physician. She does not remember the last time she was prescribed steroids. She was admitted and intubated x1 around 4 years ago at an outside hospital according to patient's report. Patient feels much better after the nebulizer has been provided here at this facility. ROS: See HPI All other review of systems reviewed and otherwise negative Reviewed vital signs and nursing note as charted by RN. PHYSICAL EXAM: CONSTITUTIONAL: Alert and oriented and responds appropriately to questions. Well-appearing; well-nourished HEAD: Normocephalic; atraumatic EYES: PERRL; Conjunctivae clear, sclerae non-icteric ENT: Normal nose; bilateral nonpurulent non-copious nasal rhinorrhea; moist mucous membranes; pharynx without lesions noted NECK: Supple without meningismus; non-tender; no cervical lymphadenopathy, no masses CARD: Regular rate and rhythm; no murmurs; symmetric distal pulses RESP: Normal chest excursion without splinting or tachypnea; breath sounds clear and equal bilaterally; no wheezing or rhonchi on my exam ABD/GI: Normal bowel sounds; non-distended; soft, non-tender; no palpable organomegaly or masses BACK: The back appears normal and is non-tender to palpation EXT: Normal ROM in all joints; non-tender to palpation; no edema SKIN: No acute lesions noted NEURO: CN 2-12 intact; 5/5 bilateral upper and lower extremity strength with sensation intact to light touch PSYCH: The patient's mood and manner are appropriate. Grooming and personal hygiene are appropriate. TRAVEL OUTSIDE OF THE [place] IN LAST 30 DAYS: No - Related Data Allergies/Adverse Reactions: amoxicillin [Amoxicillin] Allergy (Severe, Verified 01/01/19 07:38) Generalized rash aspirin [Aspirin] Allergy (Severe, Verified 01/01/19 07:38) CHEST TIGHTNESS,SOB oxycodone [Oxycodone] Allergy (Severe, Verified 01/01/19 07:38) CHEST TIGHTNESS, THROAT SWELLING oxycodone HCl [From Percocet] Allergy (Severe, Verified 01/01/19 07:38) itching Penicillins Allergy (Severe, Verified 01/01/19 07:38) Anaphylaxis amoxicillin trihydrate [From Augmentin] Adverse Reaction (Severe, Verified 01/01/19 07:38) Fever Potassium Clavulanate * [From Augmentin] Adverse Reaction (Severe, Verified 01/01/19 07:38) Fever Past Medical History - Social History Smoking Status: Current Every Day Smoker Frequency of alcohol use: None Drug Abuse: None Family History: Reviewed & Not Pertinent Patient has suicidal ideation: No Patient has homicidal ideation: No - Past Medical History Cardiac Medical History: Denies: Hx Coronary Artery Disease, Hx Heart Attack, Hx Hypertension, Hx Pulmonary Embolism, Hx Heart Murmur Pulmonary Medical History: Reports: Hx Asthma - inhaler/neb, Hx Bronchitis - hx of, Hx Pneumonia - hx of Denies: Hx COPD, Hx Sleep Apnea, Hx Tuberculosis Neurological Medical History: Reports: Hx Seizures - A CHILD. Denies: Hx Cerebrovascular Accident Endocrine Medical History: Denies: Hx Hyperthyroidism, Hx Hypothyroidism Renal/ Medical History: Reports: Hx Kidney Stones - HX OF, Hx Ovarian Cysts. Denies: Hx Peritoneal Dialysis, Hx Pelvic Inflammatory Disease Malignancy Medical History: Denies: Hx Breast Cancer, Hx Cervical Cancer, Hx Ovarian Cancer GI Medical History: Reports: Hx Gastroesophageal Reflux Disease, Hx Ulcer - AGE 17. Denies: Hx Hiatal Hernia Musculoskeletal Medical History: Reports Hx Arthritis - knees, Denies Hx Fibromyalgia Psychiatric Medical History: Denies: Hx Bipolar Disorder, Hx Depression, Hx Post Traumatic Stress Disorder, Hx Schizophrenia Traumatic Medical History: Denies: Hx Fractures Infectious Medical History: Denies: Hx HIV Past Surgical History: Reports: Hx Section - x2, Hx Cholecystectomy, Hx Orthopedic Surgery - left knee x2 - Immunizations Immunizations up to date: Yes Hx Diphtheria, Pertussis, Tetanus Vaccination: Yes Physical Exam - Vital signs Vitals: Temp Pulse Resp BP Pulse Ox 98.1 F 107 H 17 140/80 H 97 01/01/19 07:42 01/01/19 07:42 01/01/19 07:42 01/01/19 07:42 01/01/19 07:42 Course - Re-evaluation Re-evalutation: Given the history and physical examination in this well-appearing patient with vital signs as recorded, with clear lungs after the nebulizer, we will reassess the patient's lungs and most likely provide a 5-day course of steroids with strict return precautions and follow-up with the primary care physician. 01/01/19 10:26 Lungs still sound clear. Patient still feels excellent. Excellent vital signs. I do believe PE, dissection, pneumonia, and ACS all to be extremely unlikely. - Vital Signs Vital signs: Temp Pulse Resp BP Pulse Ox 98.1 F 107 H 17 140/80 H 97 01/01/19 07:42 01/01/19 07:42 01/01/19 07:42 01/01/19 07:42 01/01/19 07:42 Discharge - Discharge Clinical Impression: Asthma exacerbation Qualifiers: Asthma severity: mild Asthma persistence: intermittent Qualified Code(s): J45.21 - Mild intermittent asthma with (acute) exacerbation Condition: Good Disposition: HOME, SELF-CARE Additional Instructions: Please take 2 puffs of the albuterol inhaler every 4 hours as needed for cough or shortness of breath. Return immediately with any chest pain, leg swelling, fevers, worsening cough or shortness of breath, or any other acute problems. Please fulfill the course of steroids as provided. Please follow-up with your primary care physician for reassessment. Prescriptions: Prednisone [Deltasone 20 mg Tablet] 20 mg PO DAILY 4 Days #12 tablet Referrals: KODAK HILARIO PA-C [Primary Care Provider] - Follow up as needed
[2019-01-01 11:27] VITALS: BP 128/67
== END 2019-01-01 11:27 | disposition home or self-care (01) ==
LOC: ER 07:37
DX: J45.21 Mild intermittent asthma with (acute) exacerbation (principal); Z79.899 Other long term (current) drug therapy; R05 Cough; J34.89 Other specified disorders of nose and nasal sinuses; F17.200 Nicotine dependence, unspecified, uncomplicated; Z87.01 Personal history of pneumonia (recurrent); Z88.0 Allergy status to penicillin; Z88.8 Allergy status to other drugs, medicaments and biological substances; Z88.5 Allergy status to narcotic agent; Z87.892 Personal history of anaphylaxis
CPT/HCPCS: 94640; 99284; J7512; J7620

== ENCOUNTER 2019-05-14 16:54 | Emergency (ER) | payer OTHER, MEDICAID ==
[2019-05-14] MEDS ORDERED: TRAMADOL HCL 50 MG TABLET PO ONE (17:45)
[2019-05-14] MEDS ORDERED: DIPH/PERTUSS(ACELL)/TETANUS VAC/PF 0.5 ML SYR (>=10YO) IM ONE (17:54)
--- NOTE | 2019-05-14 17:57 | ER Document Report ---
ED General - General Chief Complaint: Hand Burn Stated Complaint: BURN TO HANDS/HOT GREASE Time Seen by Provider: 05/14/19 17:37 Primary Care Provider: KODAK HILARIO PA-C [Primary Care Provider] - Follow up in 3-5 days TRAVEL OUTSIDE OF THE [place] IN LAST 30 DAYS: No - HPI Notes: 33-year-old female to the emergency department with complaints of vargas to both of her hands that occurred just prior to arrival. She works at [employer] and was trying to get a basket that has hot oil and it straightened out in the [employer] mason. She states that she accidentally immersed the tips of her fingers and hands into the oil and burned herself. She states that she immediately pulled her hands out. She states she applied ice. She states that her hands really hurt and they feel tight from the vargas. She denies any fevers or chills. She states that she believes that she is up-to-date on her tetanus but she is not completely sure. She denies any other injuries. - Related Data Allergies/Adverse Reactions: amoxicillin [Amoxicillin] Allergy (Severe, Verified 05/14/19 17:35) Generalized rash aspirin [Aspirin] Allergy (Severe, Verified 05/14/19 17:35) CHEST TIGHTNESS,SOB oxycodone [Oxycodone] Allergy (Severe, Verified 05/14/19 17:35) CHEST TIGHTNESS, THROAT SWELLING oxycodone HCl [From Percocet] Allergy (Severe, Verified 05/14/19 17:35) itching Penicillins Allergy (Severe, Verified 05/14/19 17:35) Anaphylaxis amoxicillin trihydrate [From Augmentin] Adverse Reaction (Severe, Verified 05/14/19 17:35) Fever Potassium Clavulanate * [From Augmentin] Adverse Reaction (Severe, Verified 05/14/19 17:35) Fever Past Medical History - General Information source: Patient - Social History Smoking Status: Current Every Day Smoker Chew tobacco use (# tins/day): No Frequency of alcohol use: None Drug Abuse: None Family History: Reviewed & Not Pertinent Patient has suicidal ideation: No Patient has homicidal ideation: No - Past Medical History Cardiac Medical History: Denies: Hx Coronary Artery Disease, Hx Heart Attack, Hx Hypertension, Hx Pulmonary Embolism, Hx Heart Murmur Pulmonary Medical History: Reports: Hx Asthma - inhaler/neb, Hx Bronchitis - hx of, Hx Pneumonia - hx of Denies: Hx COPD, Hx Sleep Apnea, Hx Tuberculosis Neurological Medical History: Reports: Hx Seizures - A CHILD. Denies: Hx Cerebrovascular Accident Endocrine Medical History: Denies: Hx Hyperthyroidism, Hx Hypothyroidism Renal/ Medical History: Reports: Hx Kidney Stones - HX OF, Hx Ovarian Cysts. Denies: Hx Peritoneal Dialysis, Hx Pelvic Inflammatory Disease Malignancy Medical History: Denies: Hx Breast Cancer, Hx Cervical Cancer, Hx Ovarian Cancer GI Medical History: Reports: Hx Gastroesophageal Reflux Disease, Hx Ulcer - AGE 17. Denies: Hx Hiatal Hernia Musculoskeletal Medical History: Reports Hx Arthritis - knees, Denies Hx Fibromyalgia Psychiatric Medical History: Denies: Hx Bipolar Disorder, Hx Depression, Hx Post Traumatic Stress Disorder, Hx Schizophrenia Traumatic Medical History: Denies: Hx Fractures Infectious Medical History: Denies: Hx HIV Past Surgical History: Reports: Hx Section - x2, Hx Cholecystectomy, Hx Orthopedic Surgery - left knee x2 - Immunizations Immunizations up to date: Yes Hx Diphtheria, Pertussis, Tetanus Vaccination: Yes Review of Systems - Review of Systems Constitutional: denies: Chills, Fever EENT: No symptoms reported Cardiovascular: No symptoms reported Respiratory: denies: Cough, Short of breath Gastrointestinal: denies: Abdominal pain, Diarrhea, Nausea, Vomiting Genitourinary: No symptoms reported Female Genitourinary: No symptoms reported Musculoskeletal: See HPI, Other - Bilateral hand pain from vargas Skin: Other - Vargas to the hands Hematologic/Lymphatic: No symptoms reported Neurological/Psychological: No symptoms reported -: Yes All other systems reviewed and negative Physical Exam - Vital signs Vitals: Temp Pulse Resp BP Pulse Ox 98.2 F 97 18 141/90 H 97 05/14/19 17:08 05/14/19 17:08 05/14/19 17:08 05/14/19 17:08 05/14/19 17:08 Interpretation: Normal - General General appearance: Appears well, Alert - HEENT Head: Normocephalic, Atraumatic Eyes: Normal Pupils: PERRL - Respiratory Respiratory status: No respiratory distress Chest status: Nontender Breath sounds: Normal Chest palpation: Normal - Cardiovascular Rhythm: Regular Heart sounds: Normal auscultation Murmur: No - Abdominal Inspection: Normal Distension: No distension Bowel sounds: Normal Tenderness: Nontender Organomegaly: No organomegaly - Extremities Notes: Patient has tenderness to palpation of her bilateral hands and index finger through pinky of both hands from where first-degree vargas are. She has them flexed because she states it hurts and she feels tightness when she extends them. Her fingers have full range of motion and 5 out of 5 strength against resistance in flexion and extension. Cap refills less than 2 seconds. Radial pulses are intact and equal. Nontender to palpation over the bilateral wrists elbows and shoulders. All upper extremity joints have full range of motion against resistance. - Neurological Neuro grossly intact: Yes Cognition: Normal Orientation: AAOx4 [place] Coma Scale Eye Opening: Spontaneous Sanjay Coma Scale Verbal: Oriented Eek Coma Scale Motor: Obeys Commands Eek Coma Scale Total: 15 Speech: Normal Cranial nerves: Normal Cerebellar coordination: Normal Motor strength normal: LUE, RUE, LLE, RLE Additional motor exam normals: Equal complaint clerk. No: Pronator drift Sensory: Normal - Psychological Associated symptoms: Normal affect, Normal mood - Skin Skin Temperature: Warm Skin Moisture: Dry Skin Color: Normal Skin irregularity: other - There are mild first-degree vargas to the right and third index through pinky fingers and slightly onto the palms. At the tips of the right fingers there are some evolving second-degree partial-thickness blisters. There is nothing to unroofed. There is no evidence for third-degree or more serious vargas. Total body surface area is less than 1%. Course - Re-evaluation Re-evalutation: Impression: Predominalty first degree vargas with some 2nd degree vargas to the tips of the right hand. We will update her tetanus shot since she is uncertain. Dress wounds with bacitracin, give pain control. Patient agrees. PCP follow up. Gave strict return precautions. - Vital Signs Vital signs: Temp Pulse Resp BP Pulse Ox 97.9 F 88 20 130/78 H 97 05/14/19 18:44 05/14/19 18:44 05/14/19 18:44 05/14/19 18:44 05/14/19 17:08 Discharge - Discharge Clinical Impression: First degree burn of hand including fingers Qualifiers: Encounter type: initial encounter Laterality: left Qualified Code(s): T23.102A - Burn of first degree of left hand, unspecified site, initial encounter Second degree burn of finger of right hand Qualifiers: Encounter type: initial encounter Qualified Code(s): T23.221A - Burn of second degree of single right finger (nail) except thumb, initial encounter First degree burn of right hand Qualifiers: Encounter type: initial encounter Burn of hand location: palm Qualified Code(s): T23.151A - Burn of first degree of right palm, initial encounter Disposition: HOME, SELF-CARE Instructions: Vargas ([facility]) Additional Instructions: KEEP VARGAS CLEAN. APPLY TOPICAL ANTIBIOTICS. DRESS WITH NONADHESIVE DRESSING. TAKE MEDICINES PRESCRIBED. FOLLOW UP WITH PRIMARY CARE WITHOUT FAIL. Prescriptions: Ibuprofen [Motrin 600 mg Tablet] 600 mg PO Q8HP PRN #24 tablet PRN Reason: Bacitracin [Bacitracin Oph Oint 3.5 gm] 1 applic OP TID #1 tube Tramadol HCl [Ultram 50 mg Tablet] 50 mg PO Q8H PRN #9 tab PRN Reason: Forms: Return to Work Referrals: KODAK HILARIO PA-C [Primary Care Provider] - Follow up in 3-5 days
[2019-05-14 18:45] VITALS: BP 130/78
== END 2019-05-14 19:17 | disposition home or self-care (01) ==
LOC: ER 16:54
DX: T23.202A Burn of second degree of left hand, unspecified site, initial encounter (principal); T23.221A Burn of second degree of single right finger (nail) except thumb, initial encounter; T23.102A Burn of first degree of left hand, unspecified site, initial encounter; T23.131A Burn of first degree of multiple right fingers (nail), not including thumb, initial encounter; T23.151A Burn of first degree of right palm, initial encounter; X10.2XXA Contact with fats and cooking oils, initial encounter; Y99.0 Civilian activity done for income or pay; Z23 Encounter for immunization
CPT/HCPCS: 90471; 90715; 99282

== ENCOUNTER 2019-07-22 13:17 | Emergency (ER) | payer MEDICAID, OTHER ==
--- NOTE | 2019-07-22 13:29 | ER Document Report ---
ED Medical Screen (RME) - General Chief Complaint: Urinary Problem Stated Complaint: URINARY PROBLEM Time Seen by Provider: 07/22/19 13:21 Primary Care Provider: KODAK HILARIO PA-C [Primary Care Provider] - Follow up as needed Mode of Arrival: Ambulatory Information source: Patient Notes: 33-year-old female presents with complaints of bilateral flank pain abdominal pain and hematuria. Reports she noticed blood in her urine yesterday. Complains of abdominal pain and flank pain today. She reports it feels like her abdomen is swollen. She has had this feeling before taken Midol. She reports Midol did not help today. Patient also reports she takes ibuprofen every single day for the past 4 years due to chronic back and knee pain. Denies fever vomiting diarrhea but reports nausea. Declines antinausea medicine. LMP was last week. I have greeted and performed a rapid initial assessment of this patient. A comprehensive ED assessment and evaluation of the patient, analysis of test results and completion of the medical decision making process will be conducted by additional ED providers. TRAVEL OUTSIDE OF THE [place] IN LAST 30 DAYS: No - Related Data Allergies/Adverse Reactions: amoxicillin [Amoxicillin] Allergy (Severe, Verified 07/22/19 13:26) Generalized rash aspirin [Aspirin] Allergy (Severe, Verified 07/22/19 13:26) CHEST TIGHTNESS,SOB oxycodone [Oxycodone] Allergy (Severe, Verified 07/22/19 13:26) CHEST TIGHTNESS, THROAT SWELLING oxycodone HCl [From Percocet] Allergy (Severe, Verified 07/22/19 13:26) itching Penicillins Allergy (Severe, Verified 07/22/19 13:26) Anaphylaxis amoxicillin trihydrate [From Augmentin] Adverse Reaction (Severe, Verified 07/22/19 13:26) Fever Potassium Clavulanate * [From Augmentin] Adverse Reaction (Severe, Verified 07/22/19 13:26) Fever Past Medical History - Social History Chew tobacco use (# tins/day): No Frequency of alcohol use: None Drug Abuse: None - Past Medical History Cardiac Medical History: Denies: Hx Coronary Artery Disease, Hx Heart Attack, Hx Hypertension, Hx Pulmonary Embolism, Hx Heart Murmur Pulmonary Medical History: Reports: Hx Asthma - inhaler/neb, Hx Bronchitis - hx of, Hx Pneumonia - hx of Denies: Hx COPD, Hx Sleep Apnea, Hx Tuberculosis Neurological Medical History: Reports: Hx Seizures - A CHILD. Denies: Hx Cerebrovascular Accident Endocrine Medical History: Denies: Hx Hyperthyroidism, Hx Hypothyroidism Renal/ Medical History: Reports: Hx Kidney Stones - HX OF, Hx Ovarian Cysts. Denies: Hx Peritoneal Dialysis, Hx Pelvic Inflammatory Disease Malignancy Medical History: Denies: Hx Breast Cancer, Hx Cervical Cancer, Hx Ovarian Cancer GI Medical History: Reports: Hx Gastroesophageal Reflux Disease, Hx Ulcer - AGE 17. Denies: Hx Hiatal Hernia Musculoskeltal Medical History: Reports Hx Arthritis - knees, Denies Hx Fibromyalgia Psychiatric Medical History: Denies: Hx Bipolar Disorder, Hx Depression, Hx Post Traumatic Stress Disorder, Hx Schizophrenia Traumatic Medical History: Denies: Hx Fractures Infectious Medical History: Denies: Hx HIV Past Surgical History: Reports: Hx Section - x2, Hx Cholecystectomy, Hx Orthopedic Surgery - left knee x2 - Immunizations Immunizations up to date: Yes Hx Diphtheria, Pertussis, Tetanus Vaccination: Yes Physical Exam - Vital signs Vitals: Temp Pulse Resp BP Pulse Ox 98.1 F 103 H 16 146/89 H 100 07/22/19 13:21 07/22/19 13:21 07/22/19 13:21 07/22/19 13:21 07/22/19 13:21 Course - Vital Signs Vital signs: Temp Pulse Resp BP Pulse Ox 98.1 F 103 H 16 146/89 H 100 07/22/19 13:21 07/22/19 13:21 07/22/19 13:21 07/22/19 13:21 07/22/19 13:21 Doctor's Discharge - Discharge Referrals: KODAK HILARIO PA-C [Primary Care Provider] - Follow up as needed
[2019-07-22 13:53] LABS: ABSOLUTE BASOPHILS # (AUTO) 0.1 10^3/uL (0.0-0.2); ABSOLUTE EOSINOPHILS # (AUTO) 0.2 10^3/uL (0.0-0.6); ABSOLUTE LYMPHOCYTES (AUTO) 2.5 10^3/uL (0.5-4.7); ABSOLUTE MONOCYTES (AUTO) 0.5 10^3/uL (0.1-1.4); ABSOLUTE NEUT (AUTO) 6.9 10^3/uL (1.7-8.2); BASOPHILS % (AUTO) 0.5 % (0-2); EOSINOPHILS % (AUTO) 2.2 % (0-6); HEMATOCRIT 38.2 % (36.0-47.0); HEMOGLOBIN 12.8 g/dL (12.0-15.5); LYMPHOCYTES % (AUTO) 24.8 % (13-45); MEAN CORPUSCULAR HEMOGLOBIN 29.1 pg (27.0-33.4); MEAN CORPUSCULAR HGB CONC 33.6 g/dL (32.0-36.0); MEAN CORPUSCULAR VOLUME 87 fl (80-97); MONOCYTES % (AUTO) 4.6 % (3-13); PLATELET COUNT 377 10^3/uL (150-450); RED BLOOD COUNT 4.41 10^6/uL (3.72-5.28); SEGMENTED NEUTROPHILS % (AUTO) 67.9 % (42-78); TOTAL CELLS COUNTED % (AUTO) 100 %; WHITE BLOOD COUNT 10.2 10^3/uL (4.0-10.5)
[2019-07-22 14:16] LABS: ALBUMIN 4.4 g/dL (3.5-5.0); ALKALINE PHOSPHATASE 59 U/L (38-126); ANION GAP 8 (5-19); ASPARTATE AMINO TRANSFERASE 22 U/L (14-36); BILIRUBIN,TOTAL 0.2 mg/dL (0.2-1.3); BLOOD UREA NITROGEN 16 mg/dL (7-20); CALCIUM 9.4 mg/dL (8.4-10.2); CARBON DIOXIDE 26 mmol/L (22-30); CHLORIDE 105 mmol/L (98-107); GLUCOSE 82 mg/dL (75-110); POTASSIUM 3.8 mmol/L (3.6-5.0); TOTAL PROTEIN 7.6 g/dL (6.3-8.2)
[2019-07-22 14:17] LABS: BILIRUBIN,URINE NEGATIVE (NEGATIVE); GLUCOSE, URINE NEGATIVE (NEGATIVE); KETONES,URINE NEGATIVE (NEGATIVE); LEUKOCYTE ESTERASE,URINE TRACE (NEGATIVE); NITRITE,URINE NEGATIVE (NEGATIVE); PROTEIN,URINE 100 mg/dL (NEGATIVE); URINE SPECIFIC GRAVITY 1.024; UROBILINOGEN,URINE NEGATIVE mg/dL (<2.0)
[2019-07-22 14:18] LABS: APPEARANCE,URINE TURBID; COLOR,URINE RED
[2019-07-22] MEDS ORDERED: ONDANSETRON ODT 4 MG TAB (6 TAB/ER DISP) PO PRN (14:22)
[2019-07-22] MEDS ORDERED: HYDROCODONE/ACETAMINOPHEN 10-325 MG TABLET PO ONE (14:22)
--- NOTE | 2019-07-22 15:04 | RADIOLOGY REPORT (SQ) ---
EXAM DESCRIPTION: CT ABD/PELVIS NO ORAL OR IV IMAGES COMPLETED DATE/TIME: 07/22/2019 2:48 pm REASON FOR STUDY: b/L flank pain COMPARISON: None. TECHNIQUE: CT scan of the abdomen and pelvis performed without intravenous or oral contrast. Images reviewed with lung, soft tissue, and bone windows. Reconstructed coronal and sagittal MPR images revi ewed. All images stored on PACS. All CT scanners at this facility use dose modulation, iterative reconstruction, and/or weight based d osing when appropriate to reduce radiation dose to as low as reasonably achievable (ALARA). [facility]: Dose Right [facility]: CareDose [facility]: Dose Right [facility]: Teradose 4D [facility]: Smart Entelos RADIATION DOSE: CT Rad equipment meets quality standard of care and radiation dose reduction techniq ues were employed. CTDIvol: 16.8 mGy. DLP: 926 mGy-cm.mGy. LIMITATIONS: None. FINDINGS: LOWER CHEST: 5 mm nodular opacity at the right lung base, partially evaluated. NON-CONTRASTED LIVER, SPLEEN, ADRENALS: Evaluation limited by lack of IV contrast. No identified sign ificant masses. PANCREAS: No masses. No peripancreatic inflammatory changes. GALLBLADDER: Surgically absent. RIGHT KIDNEY AND URETER: No suspicious masses. Assessment limited by lack of IV contrast. No signif icant calcifications. No hydronephrosis or hydroureter. LEFT KIDNEY AND URETER: No suspicious masses. Assessment limited by lack of IV contrast. No signifi cant calcifications. No hydronephrosis or hydroureter. AORTA AND RETROPERITONEUM: No aneurysm. No retroperitoneal masses or adenopathy. BOWEL AND PERITONEAL CAVITY: No obvious masses or inflammatory changes. Trace free pelvic fluid. APPENDIX: Normal. PELVIS, BLADDER, AND ABDOMINAL WALL:No abnormal masses. Trace free pelvic fluid. Bladder normal. BONES: No acute bony abnormality. No suspicious osseous lesions. OTHER: Obesity. IMPRESSION: 1. 5 mm nodular opacity at the right lung base, partially evaluated. Follow-up as belo w 2. No evidence of nephrolithiasis or obstructive uropathy. Normal appendix. 3. Trace fluid within the pelvis, likely physiologic. COMMENT: FLEISCHNER CRITERIA FOR FOLLOW-UP OF PULMONARY NODULES Incidentally detected new nodules in persons 35 or older. HIGH RISK: History of smoking or other known risk factors. <6 mm single solid nodule: LOW RISK: no routine followup. HIGH RISK: optional CT 12 mo. Quality ID # [id number]: Final reports with documentation of one or more dose reduction techniques (e.g., Au tomated exposure control, adjustment of the mA and/or kV according to patient size, use of iterative reconstruction technique) TECHNICAL DOCUMENTATION: JOB ID: [id number] 2010 [employer]- All Rights Reserved Reading location - IP/workstation name: [email or web address]
[2019-07-22] MEDS ORDERED: CIPROFLOXACIN HCL 500 MG TABLET PO ONE (15:11)
--- NOTE | 2019-07-22 15:18 | ER Document Report ---
ED General - General Chief Complaint: Urinary Problem Stated Complaint: URINARY PROBLEM Time Seen by Provider: 07/22/19 13:21 Primary Care Provider: KODAK HILARIO PA-C [NO LOCAL MD] - Follow up as needed Mode of Arrival: Ambulatory Notes: Patient is a 33-year-old white female with a past medical history significant for kidney stones and chronic back pain who presents to the emergency department the chief complaint of bilateral flank pain that began yesterday. She states is associated with a large amount of hematuria. Denies any dysuria. States the pain is in the bilateral suprapubic areas and radiates around the bilateral flanks. States this feels similar to the last time she had a kidney stone however this is more severe. She admits associated with some nausea but denies vomiting. Denies any fever or diarrhea. TRAVEL OUTSIDE OF THE [place] IN LAST 30 DAYS: No - Related Data Allergies/Adverse Reactions: amoxicillin [Amoxicillin] Allergy (Severe, Verified 07/22/19 13:26) Generalized rash aspirin [Aspirin] Allergy (Severe, Verified 07/22/19 13:26) CHEST TIGHTNESS,SOB oxycodone [Oxycodone] Allergy (Severe, Verified 07/22/19 13:26) CHEST TIGHTNESS, THROAT SWELLING oxycodone HCl [From Percocet] Allergy (Severe, Verified 07/22/19 13:26) itching Penicillins Allergy (Severe, Verified 07/22/19 13:26) Anaphylaxis amoxicillin trihydrate [From Augmentin] Adverse Reaction (Severe, Verified 07/22/19 13:26) Fever Potassium Clavulanate * [From Augmentin] Adverse Reaction (Severe, Verified 07/22/19 13:26) Fever Past Medical History - General Information source: Patient - Social History Smoking Status: Current Every Day Smoker Chew tobacco use (# tins/day): No Frequency of alcohol use: None Drug Abuse: None Family History: Reviewed & Not Pertinent Patient has suicidal ideation: No Patient has homicidal ideation: No - Past Medical History Cardiac Medical History: Denies: Hx Coronary Artery Disease, Hx Heart Attack, Hx Hypertension, Hx Pulmonary Embolism, Hx Heart Murmur Pulmonary Medical History: Reports: Hx Asthma - inhaler/neb, Hx Bronchitis - hx of, Hx Pneumonia - hx of Denies: Hx COPD, Hx Sleep Apnea, Hx Tuberculosis Neurological Medical History: Reports: Hx Seizures - A CHILD. Denies: Hx Cerebrovascular Accident Endocrine Medical History: Denies: Hx Hyperthyroidism, Hx Hypothyroidism Renal/ Medical History: Reports: Hx Kidney Stones - HX OF, Hx Ovarian Cysts. Denies: Hx Peritoneal Dialysis, Hx Pelvic Inflammatory Disease Malignancy Medical History: Denies: Hx Breast Cancer, Hx Cervical Cancer, Hx Ovarian Cancer GI Medical History: Reports: Hx Gastroesophageal Reflux Disease, Hx Ulcer - AGE 17. Denies: Hx Hiatal Hernia Musculoskeletal Medical History: Reports Hx Arthritis - knees, Denies Hx Fibromyalgia Psychiatric Medical History: Denies: Hx Bipolar Disorder, Hx Depression, Hx Post Traumatic Stress Disorder, Hx Schizophrenia Traumatic Medical History: Denies: Hx Fractures Infectious Medical History: Denies: Hx HIV Past Surgical History: Reports: Hx Section - x2, Hx Cholecystectomy, Hx Orthopedic Surgery - left knee x2 - Immunizations Immunizations up to date: Yes Hx Diphtheria, Pertussis, Tetanus Vaccination: Yes Review of Systems - Review of Systems Gastrointestinal: Nausea Genitourinary: Flank pain -: Yes All other systems reviewed and negative Physical Exam - Vital signs Vitals: Temp Pulse Resp BP Pulse Ox 98.1 F 103 H 16 146/89 H 100 07/22/19 13:21 07/22/19 13:21 07/22/19 13:21 07/22/19 13:21 07/22/19 13:21 - General General appearance: Appears well, Alert In distress: None - Respiratory Respiratory status: No respiratory distress Chest status: Nontender Breath sounds: Normal Chest palpation: Normal - Cardiovascular Rhythm: Regular Heart sounds: Normal auscultation - Abdominal Inspection: Normal Distension: No distension Bowel sounds: Normal Tenderness: Nontender Organomegaly: No organomegaly - Back Back: CVA tenderness - Bilateral - Neurological Neuro grossly intact: Yes Cognition: Normal Orientation: AAOx4 [place] Coma Scale Eye Opening: Spontaneous Sanjay Coma Scale Verbal: Oriented [place] Coma Scale Motor: Obeys Commands Sanjay Coma Scale Total: 15 Speech: Normal - Psychological Associated symptoms: Normal affect, Normal mood - Skin Skin Temperature: Warm Skin Moisture: Dry Skin Color: Normal Course - Re-evaluation Re-evalutation: 07/22/19 15:14 Patient has a penicillin allergy. Given her evidence of UTI on urinalysis we will start her on Cipro. She also may sent home with a short course of Pyridium and pain medications. Encouraged to push clear fluids. There was an incidental finding in the lung base on CAT scan. A copy of the CAT scan report was given to her and she was categorized into the high risk category requiring CT scan within 12 months for reevaluation of the pulmonary nodule. She will bring this report and discussed this with her primary doctor. Counseled her at length regarding the importance of outpatient follow-up and advised she return here or any ER immediately with any new, persistent or worsening symptoms. She verbalized understood and agreed. - Vital Signs Vital signs: Temp Pulse Resp BP Pulse Ox 98.1 F 103 H 16 146/89 H 100 07/22/19 13:21 07/22/19 13:21 07/22/19 13:21 07/22/19 13:21 07/22/19 13:21 - Laboratory Result Diagrams: 07/22/19 13:36 07/22/19 13:36 Laboratory results interpreted by me: 07/22/19 07/22/19 13:36 13:36 RDW 15.0 H Urine Protein 100 H Urine Blood LARGE H Ur Leukocyte Esterase TRACE H Discharge - Discharge Clinical Impression: UTI (urinary tract infection) Qualifiers: Urinary tract infection type: site unspecified Hematuria presence: with hematuria Qualified Code(s): N39.0 - Urinary tract infection, site not specified; R31.9 - Hematuria, unspecified Condition: Stable Disposition: HOME, SELF-CARE Instructions: Urinary Tract Infection ([facility]) Additional Instructions: Follow-up with your regular doctor in 2 to 3 days for reevaluation. Return here or any ER immediately with any new, persistent or worsening symptoms. Please remove to discuss the incidental findings of the lung nodule with your primary care provider for continued outpatient monitoring and management. Prescriptions: Ciprofloxacin HCl [Cipro 500 mg Tablet] 500 mg PO BID #14 tablet Hydrocodone/Acetaminophen [Alexis 5-325 mg Tablet] 1 tab PO Q6 PRN #10 tablet PRN Reason: Phenazopyridine HCl [Pyridium 100 Mg Tablet] 200 mg PO TID PRN #6 tablet PRN Reason: Referrals: KODAK HILARIO PA-C [NO LOCAL MD] - Follow up as needed
[2019-07-22 15:48] VITALS: BP 143/81
== END 2019-07-22 15:47 | disposition home or self-care (01) ==
LOC: ER 13:17
DX: N39.0 Urinary tract infection, site not specified (principal); R31.9 Hematuria, unspecified; R10.9 Unspecified abdominal pain; R11.0 Nausea; F17.200 Nicotine dependence, unspecified, uncomplicated; Z88.0 Allergy status to penicillin; Z88.6 Allergy status to analgesic agent; Z87.442 Personal history of urinary calculi; Z90.49 Acquired absence of other specified parts of digestive tract
CPT/HCPCS: 99284; 36415; 85025; 81025; 80053; 81001; 74176; J3490

== ENCOUNTER 2019-07-23 05:55 | Emergency (ER) | payer MEDICAID ==
--- NOTE | 2019-07-23 09:00 | ER Document Report ---
Entered by AMMON LEÓN SCRIBE 07/23/19 0716 Acting as scribe for:LEONARDA DONALD MD ED GI/ - General Chief Complaint: Urinary Retention Stated Complaint: BLOOD IN URINE/DIFFICULTY URINATING Time Seen by Provider: 07/23/19 07:13 Primary Care Provider: ANDI MAYS DO [Primary Care Provider] - Follow up as needed Mode of Arrival: Ambulatory Information source: Patient Notes: This 33-year-old female patient presents to the emergency department today with complaints of continued hematuria along with urinary retention which is new. Patient was seen here at this facility yesterday for urinary complaints and was diagnosed with a urinary tract infection and was prescribed Cipro. Patient states that since around 5 AM this morning she has been unable to urinate, stating she had been passing clots but now she is unable to pass anything. Patient mentions that she has been taking an aspirin-containing product recently but did not take it today. TRAVEL OUTSIDE OF THE [place] IN LAST 30 DAYS: No - Related Data Allergies/Adverse Reactions: amoxicillin [Amoxicillin] Allergy (Severe, Verified 07/22/19 13:26) Generalized rash aspirin [Aspirin] Allergy (Severe, Verified 07/22/19 13:26) CHEST TIGHTNESS,SOB oxycodone [Oxycodone] Allergy (Severe, Verified 07/22/19 13:26) CHEST TIGHTNESS, THROAT SWELLING oxycodone HCl [From Percocet] Allergy (Severe, Verified 07/22/19 13:26) itching Penicillins Allergy (Severe, Verified 07/22/19 13:26) Anaphylaxis amoxicillin trihydrate [From Augmentin] Adverse Reaction (Severe, Verified 07/22/19 13:26) Fever Potassium Clavulanate * [From Augmentin] Adverse Reaction (Severe, Verified 07/22/19 13:26) Fever Home Medications: cipro bid. hydrocodone. pyridium Past Medical History - General Information source: Patient - Social History Smoking Status: Current Every Day Smoker Cigarette use (# per day): Yes Frequency of alcohol use: None Drug Abuse: None Occupation: [employer] Lives with: Family Family History: Reviewed & Not Pertinent Patient has suicidal ideation: No Patient has homicidal ideation: No Pulmonary Medical History: Reports: Hx Asthma - inhaler/neb, Hx Bronchitis, Hx Pneumonia Neurological Medical History: Reports: Hx Seizures - A CHILD Renal/ Medical History: Reports: Hx Kidney Stones, Hx Ovarian Cysts GI Medical History: Reports: Hx Gastroesophageal Reflux Disease, Hx Ulcer - AGE 17 Musculoskeletal Medical History: Reports Hx Arthritis - knees Past Surgical History: Reports: Hx Section - x2, Hx Cholecystectomy, Hx Orthopedic Surgery - left knee x2 - Immunizations Immunizations up to date: Yes Hx Diphtheria, Pertussis, Tetanus Vaccination: Yes Review of Systems - Review of Systems Constitutional: No symptoms reported EENT: No symptoms reported Cardiovascular: No symptoms reported Respiratory: No symptoms reported Gastrointestinal: No symptoms reported Genitourinary: See HPI, Burning, Pain, Retention Female Genitourinary: No symptoms reported Musculoskeletal: No symptoms reported Skin: No symptoms reported Hematologic/Lymphatic: No symptoms reported Neurological/Psychological: No symptoms reported -: Yes All other systems reviewed and negative Physical Exam - Vital signs Vitals: Temp Pulse Resp BP Pulse Ox 98.2 F 110 H 18 143/83 H 98 07/23/19 06:08 07/23/19 06:08 07/23/19 06:08 07/23/19 06:08 07/23/19 06:08 - Notes Notes: Physical Exam: General: Alert, tearful, appears anxious. HEENT: Normocephalic. Atraumatic. PERRL. Extraocular movements intact. Oropharynx clear. Neck: Supple. Non-tender. Respiratory: No respiratory distress. Clear and equal breath sounds bilaterally. Cardiovascular: Regular rate and rhythm. Abdominal: Abdominal fullness, suprapubic tenderness with palpation. Normal Bowel Sounds. Back: No gross abnormalities. Extremities: Moves all four extremities. Upper extremities: Normal inspection. Normal ROM. Lower extremities: Normal inspection. No edema. Normal ROM. Neurological: Normal cognition. AAOx4. Normal speech. Psychological: Tearful, Anxious. Skin: Warm. Dry. Normal color. Course - Re-evaluation Re-evalutation: 07/23/19 08:47 Irrigating [place] catheter was placed, drained about 500 mL's of grossly bloody urine with clots. Specimen was collected for culture. Irrigation was then started. 07/23/19 10:00 Urinalysis today is nitrite positive with leukocyte esterase negative. There are too numerous to count RBCs, there were no WBCs reported. Yesterday there were too numerous to count RBCs and too numerous to count WBCs. 07/23/19 12:37 At this time the patient's bladder irrigant is only lightly pinkish tinged. We will remove the catheter, she will drink fluids throughout the day and evening, she will drink when she gets up to go to the bathroom at night. She will lay down occasionally and turn from side to side to prevent clots from developing. - Vital Signs Vital signs: Temp Pulse Resp BP Pulse Ox 97.6 F 72 16 128/72 H 100 07/23/19 12:10 07/23/19 12:10 07/23/19 12:10 07/23/19 12:10 07/23/19 12:10 - Laboratory Laboratory results interpreted by me: 07/23/19 08:35 Urine Protein >=500 H Urine Glucose (UA) 50 H Urine Nitrite POSITIVE H Urine Urobilinogen 2.0 H Discharge - Discharge Clinical Impression: Acute urinary obstruction, Hematuria due to acute cystitis Condition: Stable Disposition: HOME, SELF-CARE Additional Instructions: Continue taking the Cipro you are prescribed yesterday. Drink lots of fluids throughout the day in the evening so that you are urinating frequently. Be sure to get up, lay down, turn from side to side frequently to prevent blood from pooling in the bladder and forming clots. Return to the emergency room if you have further difficulties urinating. Follow-up with your primary care provider this week to recheck your urine to ensure that the infection has cleared. RETURN TO THE EMERGENCY ROOM IF ANY NEW OR WORSENING SYMPTOMS. Referrals: ANDI MAYS DO [Primary Care Provider] - Follow up as needed I personally performed the services described in the documentation, reviewed and edited the documentation which was dictated to the scribe in my presence, and it accurately records my words and actions.
[2019-07-23 09:42] LABS: APPEARANCE,URINE SLIGHTLY-CLOUDY; BILIRUBIN,URINE NEGATIVE (NEGATIVE); COLOR,URINE AMBER; GLUCOSE, URINE 50 mg/dL (NEGATIVE); KETONES,URINE NEGATIVE (NEGATIVE); LEUKOCYTE ESTERASE,URINE NEGATIVE (NEGATIVE); NITRITE,URINE POSITIVE (NEGATIVE); PROTEIN,URINE >=500 mg/dL (NEGATIVE); URINE SPECIFIC GRAVITY 1.029
[2019-07-23 12:11] VITALS: BP 128/72
== END 2019-07-23 12:40 | disposition home or self-care (01) ==
LOC: ER 05:55
DX: N30.01 Acute cystitis with hematuria (principal); N13.9 Obstructive and reflux uropathy, unspecified; R33.9 Retention of urine, unspecified; F41.9 Anxiety disorder, unspecified; Z88.1 Allergy status to other antibiotic agents; Z88.0 Allergy status to penicillin; Z88.8 Allergy status to other drugs, medicaments and biological substances; F17.210 Nicotine dependence, cigarettes, uncomplicated; J45.909 Unspecified asthma, uncomplicated
CPT/HCPCS: 51702; 81001; 87086; 99283

== ENCOUNTER 2019-09-24 19:46 | Emergency (ER) | payer MEDICAID ==
--- NOTE | 2019-09-24 20:24 | ER Document Report ---
ED Medical Screen (RME) - General Stated Complaint: PAIN IN LEFT KNEE Time Seen by Provider: 09/24/19 20:23 Primary Care Provider: ANDI MAYS DO [Primary Care Provider] - Follow up as needed Notes: This is a 34-year-old female presents to the emergency room today stating she had discomfort to her left knee in the same location where she had a tendon replaced by Dr. Queenie jaquez I greeted and performed a rapid initial assessment of this patient. Comprehensive ED assessment and evaluation of the patient, analysis of test results and completion of the medical decision making process will be conducted by additional ED providers. TRAVEL OUTSIDE OF THE [place] IN LAST 30 DAYS: No - HPI Onset: Just prior to arrival Onset/Duration: Persistent - Related Data Allergies/Adverse Reactions: amoxicillin [Amoxicillin] Allergy (Severe, Verified 07/22/19 13:26) Generalized rash aspirin [Aspirin] Allergy (Severe, Verified 07/22/19 13:26) CHEST TIGHTNESS,SOB oxycodone [Oxycodone] Allergy (Severe, Verified 07/22/19 13:26) CHEST TIGHTNESS, THROAT SWELLING oxycodone HCl [From Percocet] Allergy (Severe, Verified 07/22/19 13:26) itching Penicillins Allergy (Severe, Verified 07/22/19 13:26) Anaphylaxis amoxicillin trihydrate [From Augmentin] Adverse Reaction (Severe, Verified 07/22/19 13:26) Fever Potassium Clavulanate * [From Augmentin] Adverse Reaction (Severe, Verified 07/22/19 13:26) Fever Past Medical History - Past Medical History Cardiac Medical History: Denies: Hx Coronary Artery Disease, Hx Heart Attack, Hx Hypertension, Hx Pulmonary Embolism, Hx Heart Murmur Pulmonary Medical History: Reports: Hx Asthma - inhaler/neb, Hx Bronchitis, Hx Pneumonia Denies: Hx COPD, Hx Sleep Apnea, Hx Tuberculosis Neurological Medical History: Reports: Hx Seizures - A CHILD. Denies: Hx Cerebrovascular Accident Endocrine Medical History: Denies: Hx Hyperthyroidism, Hx Hypothyroidism Renal/ Medical History: Reports: Hx Kidney Stones, Hx Ovarian Cysts. Denies: Hx Peritoneal Dialysis, Hx Pelvic Inflammatory Disease Malignancy Medical History: Denies: Hx Breast Cancer, Hx Cervical Cancer, Hx Ovarian Cancer GI Medical History: Reports: Hx Gastroesophageal Reflux Disease, Hx Ulcer - AGE 17. Denies: Hx Hiatal Hernia Musculoskeltal Medical History: Reports Hx Arthritis - knees, Denies Hx Fibromyalgia Psychiatric Medical History: Denies: Hx Bipolar Disorder, Hx Depression, Hx Post Traumatic Stress Disorder, Hx Schizophrenia Traumatic Medical History: Denies: Hx Fractures Infectious Medical History: Denies: Hx HIV Past Surgical History: Reports: Hx Section - x2, Hx Cholecystectomy, Hx Orthopedic Surgery - left knee x2 - Immunizations Immunizations up to date: Yes Hx Diphtheria, Pertussis, Tetanus Vaccination: Yes Physical Exam - Vital signs Vitals: Temp Pulse Resp BP Pulse Ox 98.4 F 113 H 20 158/93 H 100 09/24/19 19:53 09/24/19 19:53 09/24/19 19:53 09/24/19 19:53 09/24/19 19:53 Course - Vital Signs Vital signs: Temp Pulse Resp BP Pulse Ox 98.4 F 113 H 20 158/93 H 100 09/24/19 19:53 09/24/19 19:53 09/24/19 19:53 09/24/19 19:53 09/24/19 19:53 Doctor's Discharge - Discharge Referrals: ANDI MAYS DO [Primary Care Provider] - Follow up as needed
--- NOTE | 2019-09-24 21:04 | RADIOLOGY REPORT (SQ) ---
CLINICAL INDICATION: pain. . TECHNIQUE: 4 view(s) were obtained of the left knee. COMPARISON: June 13, 2016. FINDINGS: No acute displaced fracture is identified of the knee. Alignment appears anatomic. Joint spaces are within normal limits for age. No significant joint effusion. Old postsurgical change. Please correlate with history. IMPRESSION: No evidence of acute displaced fracture of the knee.
[2019-09-24] MEDS ORDERED: KETOROLAC TROMETHAMINE 60 MG/2 ML SDV IM ONE (23:38)
--- NOTE | 2019-09-24 23:48 | ER Document Report ---
ED General - General Chief Complaint: Knee Pain Stated Complaint: PAIN IN LEFT KNEE Time Seen by Provider: 09/24/19 20:23 Primary Care Provider: ANDI MAYS DO [Primary Care Provider] - Follow up as needed TRAVEL OUTSIDE OF THE [place] IN LAST 30 DAYS: No - HPI Notes: Chief complaint: Left knee pain History of present illness: 34-year-old female presents with worsening of chronic pain left knee. She does not report any new injury. She has been having problems with this knee since she was 14 years of age when she accidentally tore her ACL. She apparently has had a total of 4 reconstructive procedures on the knee since then. The most recent of these was approximately 4 years ago. She continues to have chronic pain with the knee and says that her orthopedist is no longer practicing in this area and she does not currently have an orthopedic provider. 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 She also states that she is a single parent and has difficulty taking time off work. Presently she is taking ibuprofen [id number] with little relief. She reports she is otherwise in good general health. Denies any GI symptoms. - Related Data Allergies/Adverse Reactions: amoxicillin [Amoxicillin] Allergy (Severe, Verified 07/22/19 13:26) Generalized rash aspirin [Aspirin] Allergy (Severe, Verified 07/22/19 13:26) CHEST TIGHTNESS,SOB oxycodone [Oxycodone] Allergy (Severe, Verified 07/22/19 13:26) CHEST TIGHTNESS, THROAT SWELLING oxycodone HCl [From Percocet] Allergy (Severe, Verified 07/22/19 13:26) itching Penicillins Allergy (Severe, Verified 07/22/19 13:26) Anaphylaxis amoxicillin trihydrate [From Augmentin] Adverse Reaction (Severe, Verified 07/22/19 13:26) Fever Potassium Clavulanate * [From Augmentin] Adverse Reaction (Severe, Verified 07/22/19 13:26) Fever Past Medical History - General Information source: Patient, [facility] Records - Social History Smoking Status: Former Smoker Chew tobacco use (# tins/day): No Frequency of alcohol use: None Drug Abuse: None Family History: Reviewed & Not Pertinent Patient has homicidal ideation: No - Past Medical History Cardiac Medical History: Denies: Hx Coronary Artery Disease, Hx Heart Attack, Hx Hypertension, Hx Pulmonary Embolism, Hx Heart Murmur Pulmonary Medical History: Reports: Hx Asthma - inhaler/neb, Hx Bronchitis, Hx Pneumonia Denies: Hx COPD, Hx Sleep Apnea, Hx Tuberculosis Neurological Medical History: Reports: Hx Seizures - A CHILD. Denies: Hx Cerebrovascular Accident Endocrine Medical History: Denies: Hx Hyperthyroidism, Hx Hypothyroidism Renal/ Medical History: Reports: Hx Kidney Stones, Hx Ovarian Cysts. Denies: Hx Peritoneal Dialysis, Hx Pelvic Inflammatory Disease Malignancy Medical History: Denies: Hx Breast Cancer, Hx Cervical Cancer, Hx Ovarian Cancer GI Medical History: Reports: Hx Gastroesophageal Reflux Disease, Hx Ulcer - AGE 17. Denies: Hx Hiatal Hernia Musculoskeletal Medical History: Reports Hx Arthritis - knees, Denies Hx Fibromyalgia Psychiatric Medical History: Denies: Hx Bipolar Disorder, Hx Depression, Hx Post Traumatic Stress Disorder, Hx Schizophrenia Traumatic Medical History: Denies: Hx Fractures Infectious Medical History: Denies: Hx HIV Past Surgical History: Reports: Hx Section - x2, Hx Cholecystectomy, Hx Orthopedic Surgery - left knee x2 - Immunizations Immunizations up to date: Yes Hx Diphtheria, Pertussis, Tetanus Vaccination: Yes Review of Systems - Review of Systems Notes: Constitutional: Negative for fever. HENT: Negative for sore throat. Eyes: Negative for visual changes. Cardiovascular: Negative for chest pain. Respiratory: Negative for shortness of breath. Gastrointestinal: Negative for abdominal pain, vomiting or diarrhea. Genitourinary: Negative for dysuria. Musculoskeletal: As per HPI. Skin: Negative for rash. Neurological: Negative for headaches, weakness or numbness. 10 point ROS negative except as marked above and in HPI. Physical Exam - Vital signs Vitals: Temp Pulse Resp BP Pulse Ox 98.4 F 113 H 20 158/93 H 100 09/24/19 19:53 09/24/19 19:53 09/24/19 19:53 09/24/19 19:53 09/24/19 19:53 - Notes Notes: GENERAL: Moderately obese female of approximately stated age who is tearful and appears uncomfortable. SKIN: Good turgor no rashes. HEAD: Normocephalic atraumatic. EYES: PERRLA. EOMI. Conjunctivae and sclerae clear. EARS: CANALS AND TMS CLEAR. NOSE: CLEAR. MOUTH: Moist mucosa. Good dentition. No stridor or edema. No drooling. NECK: Supple. No masses or thyromegaly. No adenopathy. Carotids 2+ without bruits. No JVD. BACK: Symmetrical without tenderness. CHEST: Respirations unlabored. Breath sounds clear and symmetrical. HEART: Regular rhythm. No murmur gallop or rub. ABDOMEN: Mildly obese. Soft nontender without masses, organomegaly or rebound. Bowel sounds normally active. No bruits. GENITALIA: Deferred. EXTREMITIES: Multiple surgical scars anterior aspect left knee. Good range of motion. Active and passive movement however produces pain. There is no warmth or redness and no palpable effusion. No edema. No calf tenderness. Cap refill less than 1.5 seconds. Dorsalis pedis and posterior tibial pulses 3+ and symmetrical. NEUROLOGICAL: GCS 15. Alert and oriented x3. Normal gait. Fluent speech. Cranial nerves II through XII intact. Sensorimotor and cerebellar normal. Normal tone. PSYCHIATRIC: Appropriate affect. 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 I am going to give her injection of IM Toradol and place her in a knee immobilizer along with crutches. We going to temporarily take her off the ibuprofen and will place her on indomethacin 3 times daily with food. I cautioned her to avoid taking this on empty stomach and also advised her to stop medicine immediately if she has abdominal discomfort or vomiting. Suggest intermittent use of ice packs. She is given name for local orthopedist senior radiation therapist for follow-up and I also advised her that with her prior history of multiple failed surgeries she may wish to seek an additional opinion at 1 of the tertiary care center such as [facility] or [place]. I have provided her a work note for the next 3 days. - Vital Signs Vital signs: Temp Pulse Resp BP Pulse Ox 98.4 F 113 H 20 158/93 H 100 09/24/19 20:26 09/24/19 19:53 09/24/19 19:53 09/24/19 19:53 09/24/19 19:53 - Diagnostic Test Radiology reviewed: Reports reviewed - Normal knee x-ray per radiologist. Discharge - Discharge Clinical Impression: Internal derangement of left knee Condition: Stable Disposition: HOME, SELF-CARE Instructions: Use of Crutches ([facility]), Ice & Elevation ([facility]), Knee Immobilizing Splint ([facility]) Additional Instructions: Stop taking ibuprofen. Begin trial of Indocin provided for you on prescription. Be certain that she take this medicine with food at all times. Discontinue the medication if you develop vomiting or abdominal pain. Schedule follow-up visit with intelligence research specialist at 1 of the tertiary care Medical Center such as [facility] or [place] as recommended. You have been provided a work note for the next 3 days. Prescriptions: Indomethacin 50 mg PO TID 10 Days #30 capsule Forms: Return to Work Referrals: ANDI MAYS DO [Primary Care Provider] - Follow up as needed
[2019-09-25 00:42] VITALS: BP 147/81
== END 2019-09-25 00:15 | disposition home or self-care (01) ==
LOC: ER 19:46
DX: M23.92 Unspecified internal derangement of left knee (principal); G89.29 Other chronic pain; M25.562 Pain in left knee; J45.909 Unspecified asthma, uncomplicated; Z88.0 Allergy status to penicillin; Z88.6 Allergy status to analgesic agent; Z87.442 Personal history of urinary calculi
CPT/HCPCS: 99283; 96372; 73564; J1885

== ENCOUNTER → 2019-11-25 | Outpatient (CLI) | payer MEDICAID ==
[2019-11-25 12:00] VITALS: BP 120/73
--- NOTE | 2019-11-25 12:00 | ER RDC ASSESSMENT REPORT ---
Intake - In the Last 14 days Have you traveled outside [place]?: No Have you been in close contact with someone CONFIRMED: No Worked in Healthcare?: No - Symptoms Subjective Fever([place] feverish): Yes Chills: Yes Muscule Aches: Yes Runny Nose: Yes Sore Throat: Yes Cough (New or worsening chronic cough): Yes Shortness of breath: No Nausea or Vomiting: Yes Headache: Yes Abdominal Pain: Yes Diarrhea(3 or more loose stools in last 24 hours): Yes - Do you have any of the following Chronic lung disease: Asthma or emphysema or COPD: Yes Chronic Lung Disease Comment: History of asthma Cystic Fibrosis: No Diabetes: No High Blood Pressure: No Cardiovascular Disease: No Chronic Kidney Disease: No Chronic Liver Disease: No Chronic blood disorder like Sickle Cell Disease: No Weak immune system due to disease or medication: No Neurologic condition that limits movement: No Developmental delay - Moderate to Severe: No Recent (within past 2 weeks) or current : No Morbid Obesity (>100 pounds over ideal weight): No Obesity Comment: Height 5 feet 6 inches weight 234 pounds - Objective Temperature: 97.5 F Pulse Rate: 65 Respiratory Rate: 18 Blood Pressure: 120/73 O2 Sat by Pulse Oximetry: 98 Objective: Given above, testing performed: If Testing Performed: Test Specimen Type Sent to General - General Information source: Patient Notes: Patient here at [facility] for cover testing reports started to feel sick last week on November 18 symptoms include fevers about 100 muscle aches runny nose sore throat cough and lung as well as headache nausea vomiting abdominal pain and diarrhea. Patient has a history of asthma. Patient PCP Dr. Sprague and is trying to speak with him today. - Related Data Allergies/Adverse Reactions: amoxicillin [Amoxicillin] Allergy (Severe, Verified 07/22/19 13:26) Generalized rash aspirin [Aspirin] Allergy (Severe, Verified 07/22/19 13:26) CHEST TIGHTNESS,SOB oxycodone [Oxycodone] Allergy (Severe, Verified 07/22/19 13:26) CHEST TIGHTNESS, THROAT SWELLING oxycodone HCl [From Percocet] Allergy (Severe, Verified 07/22/19 13:26) itching Penicillins Allergy (Severe, Verified 07/22/19 13:26) Anaphylaxis amoxicillin trihydrate [From Augmentin] Adverse Reaction (Severe, Verified 07/22/19 13:26) Fever Potassium Clavulanate * [From Augmentin] Adverse Reaction (Severe, Verified 07/22/19 13:26) Fever Past Medical History - General Information source: Patient - Social History Smoking Status: Current Every Day Smoker Family History: Reviewed & Not Pertinent - Past Medical History Cardiac Medical History: Denies: Hx Coronary Artery Disease, Hx Heart Attack, Hx Hypertension, Hx Pulmonary Embolism, Hx Heart Murmur Pulmonary Medical History: Reports: Hx Asthma - inhaler/neb, Hx Bronchitis, Hx Pneumonia Denies: Hx COPD, Hx Sleep Apnea, Hx Tuberculosis Neurological Medical History: Reports: Hx Seizures - A CHILD. Denies: Hx Cerebrovascular Accident Endocrine Medical History: Denies: Hx Hyperthyroidism, Hx Hypothyroidism Renal/ Medical History: Reports: Hx Kidney Stones, Hx Ovarian Cysts. Denies: Hx Peritoneal Dialysis, Hx Pelvic Inflammatory Disease Malignancy Medical History: Denies: Hx Breast Cancer, Hx Cervical Cancer, Hx Ovarian Cancer GI Medical History: Reports: Hx Gastroesophageal Reflux Disease, Hx Ulcer - AGE 17. Denies: Hx Hiatal Hernia Musculoskeletal Medical History: Reports Hx Arthritis - knees, Denies Hx Fibromyalgia Psychiatric Medical History: Denies: Hx Bipolar Disorder, Hx Depression, Hx Post Traumatic Stress Disorder, Hx Schizophrenia Traumatic Medical History: Denies: Hx Fractures Infectious Medical History: Denies: Hx HIV Past Surgical History: Reports: Hx Section - x2, Hx Cholecystectomy, Hx Orthopedic Surgery - left knee x2 Physical Exam - General General appearance: Appears well, Alert In distress: None Notes: PHYSICAL EXAMINATION: GENERAL: Well-appearing and in no acute distress. HEAD: Atraumatic, normocephalic. EYES: sclera anicteric, conjunctiva are normal. ENT: nares patent. Moist mucous membranes. NECK: Normal range of motion, supple without lymphadenopathy LUNGS: CTAB and equal. No wheezes rales or rhonchi. Respiration even and unlabored lung sounds clear. HEART: Regular rate and rhythm without murmurs ABDOMEN: Soft, nontender, normal bowel sounds, no guarding. EXTREMITIES: No cyanosis. NEUROLOGICAL: Normal speech. PSYCH: Normal mood, normal affect. SKIN: Warm, Dry, normal turgor, Diagnostic Results Laboratory Results: Patient informed of negative rapid strep results. PEnding strep culture pending cover testing results. Patient provided instructions regarding code to include: As a person under investigation for Covid 19, the [place] department of Health and Human Services, division of public health advises you to adhere to the following guidance until your test results are reported to you. If your test result is positive, you will receive additional information from your provider and your local health department at that time. Remain at home until you are cleared by the health provider or public health authorities. Keep a log of visitors to your home, notify any visitors to your home of your isolation status. If you plan to move to a new address or leave the county, notify the local health department in your County. Call your doctor or seek care if you have an urgent medical need. Before seeking medical care, call ahead to get instructions from the provider before arriving at the medical office clinic or hospital. Notify them that you are being tested for the virus that causes Covid 19 so that arrangements can be made, as necessary, to prevent transmission to others in the healthcare setting. Next, notify the local health department in your county. If a medical emergency arises and you need to call 911, inform the first responders that you are being tested for the virus that causes Covid 19. Next, notify the local health department in your county. Patient Education/Counseling Counseling/Education: Patient presents with upper respiratory symptoms worrisome for possible Covid 19. Patient does not have emergency worring symptoms such as difficulty breathing, shortness of breath, chest pain, pressure, confusion or cyanosis. Patient appears suitable for discharge. Patient instructed to follow-up with PCP Dr. Sprague today. To ED for persistent or worsening symptoms. Patient's vital signs are stable and patient is nontoxic in appearance. Good return precautions have been discussed with patient, patient verbalized understanding and is agreeable with discharge plan of care at this time. RDC Discharge - Discharge Condition: Stable Disposition: Home; Selfcare
== END ==
LOC: RDC 11:17
PROVIDERS: ATTEND Nurse Practitioner Family
DX: Z20.828 Contact with and (suspected) exposure to other viral communicable diseases (principal); R50.9 Fever, unspecified; R05 Cough; J02.9 Acute pharyngitis, unspecified; M79.10 Myalgia, unspecified site; R09.89 Other specified symptoms and signs involving the circulatory and respiratory systems; R11.2 Nausea with vomiting, unspecified; R51 Headache; R10.9 Unspecified abdominal pain; J45.909 Unspecified asthma, uncomplicated; R19.7 Diarrhea, unspecified; K21.9 Gastro-esophageal reflux disease without esophagitis; F17.200 Nicotine dependence, unspecified, uncomplicated; Z88.0 Allergy status to penicillin; Z88.1 Allergy status to other antibiotic agents; Z88.6 Allergy status to analgesic agent
CPT/HCPCS: 87070; 87880; 87635; C9803; 99201; 99211

== ENCOUNTER 2020-03-06 11:35 | Emergency (ER) | payer MEDICAID ==
[2020-03-06] MEDS ORDERED: IPRATROPIUM/ALBUTEROL 0.5-2.5 MG/3 ML AMPUL NEB ONE ×2 (11:59→17:57)
--- NOTE | 2020-03-06 12:03 | ER Document Report ---
ED Medical Screen (RME) - General Stated Complaint: DIFFICULTY BREATHING Time Seen by Provider: 03/06/20 11:54 Primary Care Provider: ANDI MAYS DO [Primary Care Provider] - Follow up as needed TRAVEL OUTSIDE OF THE [place] IN LAST 30 DAYS: No - HPI Notes: 03/06/20 12:02 34-year-old female with a history of asthma presents to the emergency room today for complaints of shortness of breath, fever, nausea, coughing that has been progressively worse over the last few days. She smokes half a pack a day. Last menstrual cycle 02/29/2020. She states it "feels like someone is sitting on my chest, this started at 730 this morning, denies any radiation, pain comes and goes. Denies having cardiac history. Patient denies have any positive Covid test I have greeted and performed a rapid initial assessment of this patient. A comprehensive ED assessment and evaluation of the patient, analysis of test results and completion of the medical decision making process will be conducted by additional ED providers. PHYSICAL EXAMINATION: GENERAL: Well-appearing, well-nourished and in no acute distress. HEAD: Atraumatic, normocephalic. EYES: Pupils equal round extraocular movements intact, conjunctiva are normal. NECK: Normal range of motion CV: s1, s2 regular LUNGS:diminished breath sounds - Related Data Allergies/Adverse Reactions: amoxicillin [Amoxicillin] Allergy (Severe, Verified 03/06/20 11:52) Generalized rash aspirin [Aspirin] Allergy (Severe, Verified 03/06/20 11:52) CHEST TIGHTNESS,SOB oxycodone [Oxycodone] Allergy (Severe, Verified 03/06/20 11:52) CHEST TIGHTNESS, THROAT SWELLING oxycodone HCl [From Percocet] Allergy (Severe, Verified 03/06/20 11:52) itching Penicillins Allergy (Severe, Verified 03/06/20 11:52) Anaphylaxis amoxicillin trihydrate [From Augmentin] Adverse Reaction (Severe, Verified 03/06/20 11:52) Fever Potassium Clavulanate * [From Augmentin] Adverse Reaction (Severe, Verified 03/06/20 11:52) Fever Past Medical History - Past Medical History Cardiac Medical History: Denies: Hx Coronary Artery Disease, Hx Heart Attack, Hx Hypertension, Hx Pulmonary Embolism, Hx Heart Murmur Pulmonary Medical History: Reports: Hx Asthma - inhaler/neb, Hx Bronchitis, Hx Pneumonia Denies: Hx COPD, Hx Sleep Apnea, Hx Tuberculosis Neurological Medical History: Reports: Hx Seizures - A CHILD. Denies: Hx Cerebrovascular Accident Endocrine Medical History: Denies: Hx Hyperthyroidism, Hx Hypothyroidism Renal/ Medical History: Reports: Hx Kidney Stones, Hx Ovarian Cysts. Denies: Hx Peritoneal Dialysis, Hx Pelvic Inflammatory Disease Malignancy Medical History: Denies: Hx Breast Cancer, Hx Cervical Cancer, Hx Ovarian Cancer GI Medical History: Reports: Hx Gastroesophageal Reflux Disease, Hx Ulcer - AGE 17. Denies: Hx Hiatal Hernia Musculoskeltal Medical History: Reports Hx Arthritis - knees, Denies Hx Fibromyalgia Psychiatric Medical History: Denies: Hx Bipolar Disorder, Hx Depression, Hx Post Traumatic Stress Disorder, Hx Schizophrenia Traumatic Medical History: Denies: Hx Fractures Infectious Medical History: Denies: Hx HIV Past Surgical History: Reports: Hx Section - x2, Hx Cholecystectomy, Hx Orthopedic Surgery - left knee x2 - Immunizations Immunizations up to date: Yes Hx Diphtheria, Pertussis, Tetanus Vaccination: Yes Doctor's Discharge - Discharge Referrals: ANDI MAYS DO [Primary Care Provider] - Follow up as needed
[2020-03-06 13:22] LABS: ABSOLUTE EOSINOPHILS # (AUTO) 0.1 10^3/uL (0.0-0.6); ABSOLUTE LYMPHOCYTES (AUTO) 2.1 10^3/uL (0.5-4.7); ABSOLUTE MONOCYTES (AUTO) 0.4 10^3/uL (0.1-1.4); ABSOLUTE NEUT (AUTO) 6.8 10^3/uL (1.7-8.2); BASOPHILS % (AUTO) 0.3 % (0-2); EOSINOPHILS % (AUTO) 0.6 % (0-6); HEMATOCRIT 36.9 % (36.0-47.0); HEMOGLOBIN 12.1 g/dL (12.0-15.5); LYMPHOCYTES % (AUTO) 22.4 % (13-45); MEAN CORPUSCULAR HEMOGLOBIN 27.3 pg (27.0-33.4); MEAN CORPUSCULAR HGB CONC 32.8 g/dL (32.0-36.0); MEAN CORPUSCULAR VOLUME 83 fl (80-97); MONOCYTES % (AUTO) 4.6 % (3-13); PLATELET COUNT 327 10^3/uL (150-450); RED BLOOD COUNT 4.44 10^6/uL (3.72-5.28); RED CELL DISTRIBUTION WIDTH 14.4 % (11.5-14.0); SEGMENTED NEUTROPHILS % (AUTO) 72.1 % (42-78); TOTAL CELLS COUNTED % (AUTO) 100 %; WHITE BLOOD COUNT 9.5 10^3/uL (4.0-10.5)
[2020-03-06 13:33] LABS: APPEARANCE,URINE SLIGHTLY-CLOUDY; BILIRUBIN,URINE NEGATIVE (NEGATIVE); COLOR,URINE YELLOW; GLUCOSE, URINE NEGATIVE (NEGATIVE); KETONES,URINE NEGATIVE (NEGATIVE); LEUKOCYTE ESTERASE,URINE NEGATIVE (NEGATIVE); NITRITE,URINE NEGATIVE (NEGATIVE); PROTEIN,URINE NEGATIVE (NEGATIVE); URINE SPECIFIC GRAVITY 1.021; UROBILINOGEN,URINE NEGATIVE mg/dL (<2.0)
[2020-03-06 13:43] LABS: ALBUMIN 4.3 g/dL (3.5-5.0); ALKALINE PHOSPHATASE 89 U/L (38-126); ANION GAP 12 (5-19); ASPARTATE AMINO TRANSFERASE 25 U/L (14-36); BILIRUBIN,DIRECT 0.2 mg/dL (0.0-0.4); BILIRUBIN,TOTAL 0.3 mg/dL (0.2-1.3); BLOOD UREA NITROGEN 10 mg/dL (7-20); CALCIUM 9.8 mg/dL (8.4-10.2); CARBON DIOXIDE 25 mmol/L (22-30); CHLORIDE 102 mmol/L (98-107); GLUCOSE 133 mg/dL (75-110); POTASSIUM 3.9 mmol/L (3.6-5.0); TOTAL PROTEIN 7.5 g/dL (6.3-8.2)
--- NOTE | 2020-03-06 15:13 | EKG REPORT ---
SEVERITY:- BORDERLINE ECG - SINUS RHYTHM BORDERLINE PROLONGED QT INTERVAL : Confirmed by: Ana Watson MD 06-Mar-2020 15:12:22
--- NOTE | 2020-03-06 17:23 | RADIOLOGY REPORT (SQ) ---
EXAM DESCRIPTION: CHEST SINGLE VIEW IMAGES COMPLETED DATE/TIME: 03/06/2020 1:26 pm REASON FOR STUDY: sob COMPARISON: None. EXAM PARAMETERS: NUMBER OF VIEWS: One view. TECHNIQUE: Single frontal radiographic view of the chest acquired. RADIATION DOSE: NA LIMITATIONS: None. FINDINGS: LUNGS AND PLEURA: No opacities, masses or pneumothorax. No pleural effusion. MEDIASTINUM AND HILAR STRUCTURES: No masses. Contour normal. HEART AND VASCULAR STRUCTURES: Heart normal in size. Normal vasculature. BONES: No acute findings. HARDWARE: None in the chest. OTHER: No other significant finding. IMPRESSION: NO ACUTE RADIOGRAPHIC FINDING IN THE CHEST. TECHNICAL DOCUMENTATION: JOB ID: [id number] 2010 [employer]- All Rights Reserved Reading location - IP/workstation name: [email or web address]
[2020-03-06] MEDS ORDERED: METHYLPREDNISOLONE INJ 125 MG/2 ML SDV IV ONE (17:57)
--- NOTE | 2020-03-06 18:06 | ER Document Report ---
ED Respiratory Problem - General Chief Complaint: Breathing Difficulty Stated Complaint: DIFFICULTY BREATHING Time Seen by Provider: 03/06/20 11:54 Primary Care Provider: ANDI MAYS DO [Primary Care Provider] - Follow up as needed Notes: CHIEF COMPLAINT: Shortness of breath today HPI: 34-year-old female with asthma history presenting to the emergency department complaining of sudden onset of shortness of breath around 730 this morning. States she felt like she could not take a deep breath in or catch her breath. States she does have a nebulizer at home and did try to use it without improvement or resolution of her symptoms. Does report some discomfort in the chest with deep breathing. Reports mother had a history of lupus and blood clots. Patient is not on control. Patient states that she still feels short of breath like she cannot take a deep breath in. She reports that she has had congestion both facial and chest as well as sore throat over the last 2 weeks has not seen a primary provider for these. ROS: See HPI - all other systems were reviewed and are otherwise negative Constitutional: no fever Eyes: no drainage, no blurred vision ENT: no runny nose, no sore throat Cardiovascular: + chest pain Resp: + SOB, + cough GI: no vomiting, no diarrhea, no abdominal pain : no dysuria Integumentary: no rash Allergy: no hives Musculoskeletal: no extremity pain or swelling Neurological: no numbness/tingling, no weakness MEDICATIONS: I agree with the patient medications as charted by the RN. ALLERGIES: I agree with the allergies as charted by the RN. PAST MEDICAL HISTORY/PAST SURGICAL HISTORY: Reviewed and agree as charted by RN. SOCIAL HISTORY: Reviewed and agree as charted by RN. FAMILY HISTORY: No significant familial comorbid conditions directly related to patient complaint EXAM: Reviewed vital signs as charted by RN. CONSTITUTIONAL: Alert and oriented and responds appropriately to questions. Well-appearing; well-nourished HEAD: Normocephalic; atraumatic EYES: PERRL; Conjunctivae clear, sclerae non-icteric ENT: normal nose; no rhinorrhea; moist mucous membranes; pharynx without lesions noted, no uvula edema or deviation, no tonsillar hypertrophy, phonation normal NECK: Supple without meningismus; non-tender; no cervical lymphadenopathy, no masses CARD: RRR; no murmurs, no clicks, no rubs, no gallops; symmetric distal pulses RESP: Normal chest excursion without splinting, breath sounds clear and equal bilaterally; no wheezes, no rhonchi, no rales, pulse oximetry 98% on room air not hypoxic. Patient does seem to be mildly dyspneic and tachypneic with speaking ABD/GI: Normal bowel sounds; non-distended; soft, non-tender, no rebound, no guarding; no palpable organomegaly or masses. BACK: The back appears normal and is non-tender to palpation, there is no CVA tenderness EXT: Normal ROM in all joints; non-tender to palpation; no cyanosis, no e ffusions, no edema SKIN: Normal color for age and race; warm; dry; good turgor; no acute lesions noted NEURO: Moves all extremities equally; Motor and sensory function intact PSYCH: The patient's mood and manner are appropriate. Grooming and personal hygiene are appropriate. MDM: 34-year-old female who is not on control presenting for sudden onset of shortness of breath this morning. Had a breathing treatment at home and another in the emergency department states she did not feel like there was any improvement in her breathing difficulties. Has been sick for 2 weeks with upper respiratory symptoms. Does work at [employer] and states she is exposed to multiple people. Covid is a concern. Her chest x-ray does not show acute findings. Her other lab work does not show acute findings. I am concerned about her continued tachypnea given the family history of clotting disorders will obtain CTA of the chest to evaluate for PE TRAVEL OUTSIDE OF THE [place] IN LAST 30 DAYS: No - Related Data Allergies/Adverse Reactions: amoxicillin [Amoxicillin] Allergy (Severe, Verified 03/06/20 11:52) Generalized rash aspirin [Aspirin] Allergy (Severe, Verified 03/06/20 11:52) CHEST TIGHTNESS,SOB oxycodone [Oxycodone] Allergy (Severe, Verified 03/06/20 11:52) CHEST TIGHTNESS, THROAT SWELLING oxycodone HCl [From Percocet] Allergy (Severe, Verified 03/06/20 11:52) itching Penicillins Allergy (Severe, Verified 03/06/20 11:52) Anaphylaxis amoxicillin trihydrate [From Augmentin] Adverse Reaction (Severe, Verified 03/06/20 11:52) Fever Potassium Clavulanate * [From Augmentin] Adverse Reaction (Severe, Verified 03/06/20 11:52) Fever Past Medical History - Social History Smoking Status: Current Every Day Smoker Chew tobacco use (# tins/day): No Frequency of alcohol use: None Drug Abuse: None Family History: Reviewed & Not Pertinent Patient has homicidal ideation: No - Past Medical History Cardiac Medical History: Denies: Hx Coronary Artery Disease, Hx Heart Attack, Hx Hypertension, Hx Pulmonary Embolism, Hx Heart Murmur Pulmonary Medical History: Reports: Hx Asthma - inhaler/neb, Hx Bronchitis, Hx Pneumonia Denies: Hx COPD, Hx Sleep Apnea, Hx Tuberculosis Neurological Medical History: Reports: Hx Seizures - A CHILD. Denies: Hx Cerebrovascular Accident Endocrine Medical History: Denies: Hx Hyperthyroidism, Hx Hypothyroidism Renal/ Medical History: Reports: Hx Kidney Stones, Hx Ovarian Cysts. Denies: Hx Peritoneal Dialysis, Hx Pelvic Inflammatory Disease Malignancy Medical History: Denies: Hx Breast Cancer, Hx Cervical Cancer, Hx Ovarian Cancer GI Medical History: Reports: Hx Gastroesophageal Reflux Disease, Hx Ulcer - AGE 17. Denies: Hx Hiatal Hernia Musculoskeletal Medical History: Reports Hx Arthritis - knees, Denies Hx Fibromyalgia Psychiatric Medical History: Denies: Hx Bipolar Disorder, Hx Depression, Hx Post Traumatic Stress Disorder , Hx Schizophrenia Traumatic Medical History: Denies: Hx Fractures Infectious Medical History: Denies: Hx HIV Past Surgical History: Reports: Hx Section - x2, Hx Cholecystectomy, Hx Orthopedic Surgery - left knee x2 - Immunizations Immunizations up to date: Yes Hx Diphtheria, Pertussis, Tetanus Vaccination: Yes Physical Exam - Vital signs Vitals: Temp Pulse Resp BP Pulse Ox 97.7 F 106 H 22 H 126/94 H 100 03/06/20 11:59 03/06/20 11:59 03/06/20 11:59 03/06/20 11:59 03/06/20 11:59 Course - Re-evaluation Re-evalutation: 03/06/20 18:06 EKG normal sinus rhythm with a ventricular rate of 92, OH 140, QT 388, QTc 41, borderline prolonged QT interval borderline EKG interpreted by emergency depa rtment physicians. No other visible ectopy 03/06/20 20:54 Patient's pulse oximetry still remains at 100%. She still has a slightly spastic cough not as bad as previously. CT imaging does not show evidence of pneumonia or PE. I discussed this at length with the patient we will prescribe her more medication for nebulizer consistent use with steroids. Follow-up PCP. Return if condition worsens. She is a person under investigation for COVID-19 at this time - Vital Signs Vital signs: Temp Pulse Resp BP Pulse Ox 97.9 F 106 H 22 H 173/86 H 100 03/06/20 17:17 03/06/20 17:17 03/06/20 17:17 03/06/20 17:17 03/06/20 17:17 - Laboratory Result Diagrams: 03/06/20 12:51 03/06/20 12:51 Laboratory results interpreted by me: 03/06/20 03/06/20 03/06/20 12:51 12:51 12:51 RDW 14.4 H Glucose 133 H Urine Blood SMALL H Discharge - Discharge Clinical Impression: Acute bronchospasm due to viral infection, Person under investigation for COVID-19 Condition: Stable Disposition: HOME, SELF-CARE Instructions: COVID-19 Guidance for Persons Under Investigation Additional Instructions: Continue to use your nebulizer every 4 hours as needed for shortness of breath. Continue the steroids as prescribed. You are considered a person under investigation for COVID-19 at this time, self quarantine at home pending her test results which may take 2 to 5 days. Return for worsened symptoms. You should receive notification from the hospital about your test results Prescriptions: Albuterol Sulfate [Ventolin 0.083% Neb 2.5 mg/3 mL Ampul] 1 vial NEB Q4HP PRN #20 vial PRN Reason: Dexamethasone [Decadron 4 Mg Tablet] 4 mg PO DAILY #7 tablet Referrals: ANDI MAYS DO [Primary Care Provider] - Follow up as needed
--- NOTE | 2020-03-06 20:38 | RADIOLOGY REPORT (SQ) ---
EXAM DESCRIPTION: CT CHEST ANGIOGRAPHY WITHOUT THEN WITH IV CONTRAST COMPLETED DATE/TME: 03/06/2020 19:49 CLINICAL HISTORY: 34 years, Female, dyspnea eval for PE COMPARISON: Chest x-ray from today. CT abdomen pelvis 07/22/2019. TECHNIQUE: Axial images with 71 mL of Omnipaque 350. MIP reconstruction. Images stored on PACS. All CT scanners at this facility use dose modulation, iterative reconstruction, and/or weight based dosing when appropriate to reduce radiation dose to as low as reasonably achievable (ALARA). FINDINGS: Motion artifact. No evidence for central PE. Peripheral vessels less well evaluated. Mild left cardiomegaly. Aorta is unremarkable. There is no evidence for pericardial effusion or mediastinal adenopathy. No suspicious acute lung or pleural abnormalities. There is a 4-5 mm nodule in the right middle lobe. No change since 07/22/2019. Limited images of the upper abdomen without acute findings. IMPRESSION: 1. Motion artifact. No obvious central PE or acute lung abnormality. 2. Mild left cardiomegaly. 3. 5 mm nodule right mid lobe unchanged since CT from 07/22/2019. If patient is low risk, no further follow-up is necessary.
[2020-03-06 21:12] VITALS: BP 131/83
== END 2020-03-06 21:12 | disposition home or self-care (01) ==
LOC: ER 11:35
DX: J98.01 Acute bronchospasm (principal); B34.9 Viral infection, unspecified; F17.200 Nicotine dependence, unspecified, uncomplicated; Z20.828 Contact with and (suspected) exposure to other viral communicable diseases; Z90.49 Acquired absence of other specified parts of digestive tract
CPT/HCPCS: 93005; 94640 ×2; 99285; 96374; 36415; 84702; 85025; 87635; 80053; 81001; 84484; 71045; 71275; 93010; J2930; C9803